=== PATIENT | female | born 1945 | race Caucasian/White ===

== ENCOUNTER 2024-04-07 10:44 | Emergency (ER) | payer OTHER ==
--- NOTE | 2024-04-07 12:01 | RAD REPORT ---
EXAMINATION: CT HEAD WITHOUT CONTRAST CT CERVICAL SPINE WITHOUT CONTRAST CLINICAL INDICATION: Head and neck injury status post fall. Head and neck pain TECHNIQUE: Axial CT images from the skull base to the vertex without intravenous contrast. Axial CT i mages through the cervical spine were obtained without intravenous contrast. Sagittal and coronal reformatted images were created from the data set. Coronal and sagittal reformatted images were creat ed from the data set. One or more of the following dose reduction techniques were used: Automated exposure control, adjustment of the mA and/or kV according to patient size, and/or iterative reconstr uction. Unless otherwise specified, incidental findings do not require dedicated imaging follow-up. [id number]. Comparison: 2012 FINDINGS: Intracranial bleed not noted. Ventricles are normal in caliber. Moderate low-density areas periventricular, deep and subcortical white matter probably ischemic river es secondary to small vessel disease. No extra-axial fluid collection. No fluid within the sinuses/mastoids No fracture or dislocation is seen involving the cervical spine. Spondylosis cervical spine. Mild to moderate central spinal stenosis distal cervical spine. Posterior elements IMPRESSION: No acute intracranial abnormality noted A cervical fracture is not seen. 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 This could be benign or a blastic metastasis.. Nonemergent bone scan carolyn mmended for further evaluation
--- NOTE | 2024-04-07 12:08 | ER ---
Nurse's Notes [facility] Name: Tiara Cheatham Age: 79 yrs Sex: Female : 1945 Arrival Date: 04/07/2024 Time: 10:44 Bed 7 Private MD: Diagnosis: Unspecified injury of head, initial encounter Presentation: 04/07 10:47 Chief complaint: EMS states: patient complains of hip pain, fell 1 months ago x 2 ko1 times, was having headaches, went to pcp who recommended neurology consult, no n/v, no loc. Coronavirus screen: At this time, the client does not indicate any symptoms associated with coronavirus-19. Ebola Screen: No symptoms or risks identified at this time. Initial Sepsis Screen: Does the patient meet any 2 criteria? No. Patient's initial sepsis screen is negative. Does the patient have a suspected source of infection? No. Patient's initial sepsis screen is negative. Risk Assessment: Do you want to hurt yourself or someone else? Patient reports no desire to harm self or others. Onset of symptoms is unknown. 10:47 Method Of Arrival: EMS: [facility] ko1 10:47 Acuity: TROY 3 ko1 Triage Assessment: 10:47 General: Appears in no apparent distress. Behavior is calm, cooperative, appropriate ko1 for age. Pain: Complains of pain in headache. Historical: - Allergies: 12:00 PENICILLINS; ko1 - Home Meds: 12:00 Unable to obtain [Active]; ko1 - PMHx: 12:00 Hypothyroidism; ko1 - PSHx: 12:00 Total abdominal hysterectomy; ko1 - Immunization history:: Adult Immunizations unknown. - Infectious Disease History:: Denies. - Social history:: Smoking status: Patient reports the use of cigarette tobacco products, smokes two packs cigarettes per day. Screenin:00 [facility] ED Fall Risk Assessment (Adult) History of falling in the last 3 months, ko1 including since admission Yes- fall prone (multiple falls) (3 pts) Confusion or Disorientation No (0 pts) Intoxicated or Sedated No (0 pts) Impaired Gait No (0 pts) Mobility Assist Device Used No (0 pt) Altered Elimination No (0 pt) Score/Fall Risk Level 0 - 2 = Low Risk Oriented to surroundings, Maintained a safe environment, Educated pt \T\ family on fall prevention, incl call for assistance when getting out of bed, Assessed \T\ reinforced patient's understanding of fall precautions, Provided non-skid footwear, Hourly rounding (assess needs \T\ fall precautionary measures) done. Abuse screen: Denies threats or abuse. Denies injuries from another. Nutritional screening: No deficits noted. Tuberculosis screening: No symptoms or risk factors identified. Assessment: 11:59 General: Appears in no apparent distress. Behavior is calm, cooperative, appropriate ko1 for age. Neuro: No deficits noted. Cardiovascular: No deficits noted. Respiratory: No deficits noted. GI: No deficits noted. : No deficits noted. EENT: No deficits noted. Derm: No deficits noted. Musculoskeletal: No deficits noted. Vital Signs: 10:47 BP 152 / 82; Pulse 71; Resp 16; Temp 98; Pulse Ox 95% ; ko1 11:00 BP 139 / 72; Pulse 66; Resp 16; Pulse Ox 97% on R/A; ko1 ED Course: 10:45 Patient arrived in ED. ko1 10:46 Ivory Yoon, DAREN is Primary Nurse. ko1 10:47 Arm band placed on right wrist. Patient placed in an exam room, on a stretcher, on ko1 oxygen, on library monitor, on pulse oximetry, Patient notified of wait time. 10:48 Abbie Clifton FNP-C is PHCP. kb 10:48 Jon Clements MD is Attending Physician. kb 10:49 Triage completed. ko1 11:21 CT Head C Spine In Process Unspecified. EDMS 12:00 Patient has correct armband on for positive identification. Allergy band placed. Fall ko1 risk band placed. Placed in gown. Bed in low position. Call light in reach. Side rails up X2. Provided Education on: tests. Pulse ox on. NIBP on. Door closed. Noise minimized. Lights dimmed. Warm blanket given. Pillow given. 12:00 No provider procedures requiring assistance completed. ko1 12:06 Patient did not have IV access during this emergency room visit. ko1 Administered Medications: No medications were administered Medication: 12:00 VIS not applicable for this client. ko1 Outcome: 12:07 Discharge ordered by . kb 12:16 Discharged to home ambulatory, with family, ko1 12:16 Condition: stable 12:16 Discharge instructions given to patient, Instructed on discharge instructions, follow up and referral plans. Demonstrated understanding of instructions, follow-up care, 12:16 Patient left the ED. ko1 Signatures: Dispatcher [employer] Abbie Duval, STEPHY-C LUMPIA WRAPPER MAKER-Ivory Young, RN RN ko1
--- NOTE | 2024-04-07 12:08 | EDPHYS ---
Physician Documentation [facility] Name: Tiara Cheatham Age: 79 yrs Sex: Female : 1945 Arrival Date: 04/07/2024 Time: 10:44 Bed 7 Private MD: ED Physician Jon Clements HPI: 04/07 11:11 This 79 yrs old Female presents to ER via EMS with complaints of Fall Injury. kb 11:11 Pt is a 79 year old female who presents for headache that started after a fall 3-4 kb weeks ago. States she fell, hit the left side of her head and then hit the right side when she tried to get up. States the headache has been constant and she decided to come get it checked out today because it has been causing her to feel panicky. . Historical: - Allergies: 12:00 PENICILLINS; ko1 - Home Meds: 12:00 Unable to obtain [Active]; ko1 - PMHx: 12:00 Hypothyroidism; ko1 - PSHx: 12:00 Total abdominal hysterectomy; ko1 - Immunization history:: Adult Immunizations unknown. - Infectious Disease History:: Denies. - Social history:: Smoking status: Patient reports the use of cigarette tobacco products, smokes two packs cigarettes per day. ROS: 11:11 Constitutional: As per HPI kb Exam: 11:11 Constitutional: This is a well developed, well nourished patient who is awake, alert, kb and in no acute distress. Head/Face: Normocephalic, atraumatic. ENT: Moist Mucous membranes Neck: Trachea midline and no cervical lymphadenopathy. Supple, full range of motion without nuchal rigidity, or vertebral point tenderness. No Meningismus. Cardiovascular: Regular rate Respiratory: Respirations even and unlabored. No increased work of breathing. Talking in full sentences Abdomen/GI: Soft, non-tender. No distention Skin: Warm, dry with normal turgor. Normal color. MS/ Extremity: Pulses equal, no cyanosis. Neurovascular intact. Full, normal range of motion. Neuro: Awake and alert, GCS 15, oriented to person, place, time, and situation. Vital Signs: 10:47 BP 152 / 82; Pulse 71; Resp 16; Temp 98; Pulse Ox 95% ; ko1 11:00 BP 139 / 72; Pulse 66; Resp 16; Pulse Ox 97% on R/A; ko1 MDM: 10:48 Medical Screening Exam initiated kb 11:11 Data reviewed: vital signs, nurses notes. kb 12:06 Differential diagnosis: closed head injury, contusion, fracture. Counseling: I had a kb detailed discussion with the patient and/or guardian regarding the historical points, exam findings, and any diagnostic results supporting the discharge/admit diagnosis, radiology results, the need for outpatient follow up, a family practitioner, to return to the emergency department if symptoms worsen or persist or if there are any questions or concerns that arise at home. 12:07 ED course: Discussed CT findings with pt. Pt states she had a bone scan 2 months ago kb that was normal, but will take results to PCP . . 04/07 10:50 Order name: CT Head C Spine; Complete Time: 12:03 kb Administered Medications: No medications were administered Disposition: 13:28 Co-signature as Attending Physician, Jon Clements MD I reviewed the patient's care rt provided by the Advanced Practice Provider and agree with the diagnosis and treatment plan. Disposition Summary: 04/07/24 12:07 Discharge Ordered Notes: Location: Home kb Condition: Stable kb Diagnosis - Unspecified injury of head, initial encounter kb Followup: kb - With: Emergency Department - When: As needed - Reason: Worsening of condition Followup: kb - With: Private Physician - When: 2 - 3 days - Reason: Recheck today's complaints, Continuance of care, Re-evaluation by your physician Discharge Instructions: - Discharge Summary Sheet kb - Head Injury, Adult, [id number] kb Forms: - Medication Reconciliation Form kb - Antibiotic Education kb - Prescription Opioid Use kb - Patient Portal Instructions kb - Leadership Thank You Letter kb Signatures: Dispatcher [employer] Abbie Duval, STEPHY-Socrates KEYES-Ivory Young, RN RN ko1 Jon Clements MD MD rt
[2024-04-07 12:29] VITALS: TEMP 98
[2024-04-07 12:31] VITALS: BP 139/72; O2SAT 97
== END 2024-04-07 12:16 | disposition home or self-care (01) ==
LOC: ER 10:44
DX: S09.90XA Unspecified injury of head, initial encounter (principal); W18.30XA Fall on same level, unspecified, initial encounter; F17.210 Nicotine dependence, cigarettes, uncomplicated
CPT/HCPCS: 70450; 72125; 99284

== ENCOUNTER 2024-10-08 12:46 | Emergency (ER) | payer OTHER ==
--- OUTSIDE RECORDS SUMMARY | 2024-10-08 12:50 | XMS REPORT | Continuity of Care Document ---
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 Name Role Phone Abigail Cole Attending Clinician Unavailable Tim-Mbayo_A_AH Attending Clinician Unavailable Tim-Mbayo_A_AH Admitting Clinician Unavailable Payers Payer Name Policy Type Policy Number Effective Date Expirati on Date Source Cigna Preferred [facility] 111 [id number] [facility] (MEDICARE REPLACEMENT HMO) [id number] 2023 00:00:00 [facility] ([facility]ICARE REPLACEMENT/ADVAN TAGE - HMO) [id number] 2019 00:00:00 Problems Condition Name Condition Details Condition Category Status Onset Date Resolution Date Last Treatment Date Treating Clinician Comments Source [id number] Chronic pain syndrome Problem [facility] [id number] Dysarthria Problem Commo n [facility] Hyperlipid aemia Hyperlipem ia Problem [facility] [id number] Insomnia, unspecifie d type Problem [facility] Chronic back pain Chronic back pain Problem [facility] Postsurgic al menopause Postsurgic al menopause Problem [facility] [id number] Vitamin D deficiency Problem [facility] [id number] Skin lesions Problem [facility] 10991428 Muscle cramps Problem [facility] [id number] Memory loss Problem [facility] 62586043 Muscle weakness Problem [facility] Peripheral neuropathy Peripheral neuropathy Problem [facility] 28582928 Hyperglyce jair Problem [facility] 03220544 Restless leg syndrome Problem [facility] 428149751 Routine eye exam Problem [facility] 51518295 Cataract of both eyes, unspecifie d cataract type Problem [facility] [id number] Frequent headaches Problem [facility] 69630196 Constipati on, unspecifie d constipati on type Problem [facility] 59329957 Neck pain Problem Commo n [facility] [id number] Pain in thoracic spine Problem [facility] 40982624 Other chronic pain Problem [facility] 01453448 Smoking greater than 40 pack years Problem [facility] Osteoarthr itis Osteoarthr itis Problem [facility] Tobacco user Smokes less than 1 pack a day with greater than 40 pack year history Problem [facility] Mixed anxiety and depressive disorder Depression with anxiety Problem [facility] Fibromyalg ia Fibromyalg ia Problem [facility] 66988184 Hyperchole sterolemia Problem [facility] 59648884 Migraine without status migrainosu s, not intractabl e, unspecifie d migraine type Problem [facility] 595628798 History of hyperglyce jair Problem [facility] 88401084 Lack of appetite Problem [facility] 13391963 Tremor Problem [facility] Allergies, Adverse Reactions, Alerts Allergy Name Allergy Type Status Severity Reaction(s) Onset Date Inactive Date Treating Clinician Comments Source Penicill in Penicill in Active Unknown [facility] Social History Social Habit Start Date Stop Date Quantity Comments Source History of Tobacco Use Current Smoker [facility] Sex Assigned At [facility] Smoking Status Start Date Stop Date Source Current Smoker 2024-07-19 00:00:00 [facility] Never Smoker [facility] Medications Ordered Medication Name Filled Medication Name Start Date Stop Date Current Medication? Ordering Clinician Indication Dosage Frequency Signature (SIG) Comments Components Source Mirtazapine 45 MG Mirtazapine 45 MG 2023-05 00:00: 00 No 1{table t_at_be dtime} QD Mirtazapin e 45 MG Gabapentin 600 MG Gabapentin 600 MG No 2{table ts} TID Gabapentin 600 MG Atorvastati n Calcium 20 MG Atorvastati n Calcium 20 MG No Atorvastat in Calcium 20 MG Citalopram Hydrobromid e 40 MG Citalopram Hydrobromid e 40 MG No 1{table t} QD Citalopram Hydrobromi de 40 MG rOPINIRole HCl 2 MG rOPINIRole HCl 2 MG No 1{table t} TID rOPINIRole HCl 2 MG Immunizations Ordered Immunization Name Filled Immunization Name Date Status Comments Source Pf[employer] COVID-19 Vaccine, Bivalent [employer] COVID-19 Vaccine, Bivalent Unknown Completed [facility] FLUZONE HIGH DOSE OVER 65 FLUZONE HIGH DOSE OVER 65 Unknown Completed [facility] [employer] COVID-19 Vaccine, Bivalent [employer] COVID-19 Vaccine, Bivalent Unknown Completed [facility] FLUZONE HIGH DOSE OVER 65 FLUZONE HIGH DOSE OVER 65 Unknown Completed [facility] [employer] COVID-19 Vaccine, Bivalent [employer] COVID-19 Vaccine, Bivalent Unknown Completed [facility] FLUZONE HIGH DOSE OVER 65 FLUZONE HIGH DOSE OVER 65 Unknown Completed [facility] [employer] COVID-19 Vaccine, Bivalent [employer] COVID-19 Vaccine, Bivalent Unknown Completed [facility] FLUZONE HIGH DOSE OVER 65 FLUZONE HIGH DOSE OVER 65 Unknown Completed [facility] [employer] COVID-19 Vaccine, Bivalent [employer] COVID-19 Vaccine, Bivalent Unknown Completed [facility] FLUZONE HIGH DOSE OVER 65 FLUZONE HIGH DOSE OVER 65 Unknown Completed [facility] [employer] COVID-19 Vaccine, Bivalent [employer] COVID-19 Vaccine, Bivalent Unknown Completed [facility] FLUZONE HIGH DOSE OVER 65 FLUZONE HIGH DOSE OVER 65 Unknown Completed [facility] [employer] COVID-19 Vaccine, Bivalent [employer] COVID-19 Vaccine, Bivalent Unknown Completed [facility] FLUZONE HIGH DOSE OVER 65 FLUZONE HIGH DOSE OVER 65 Unknown Completed [facility] [employer] COVID-19 Vaccine, Bivalent [employer] COVID-19 Vaccine, Bivalent Unknown Completed [facility] FLUZONE HIGH DOSE OVER 65 FLUZONE HIGH DOSE OVER 65 Unknown Completed [facility] [employer] COVID-19 Vaccine, Bivalent [employer] COVID-19 Vaccine, Bivalent Unknown Completed [facility] FLUZONE HIGH DOSE OVER 65 FLUZONE HIGH DOSE OVER 65 Unknown Completed [facility] [employer] COVID-19 Vaccine, Bivalent [employer] COVID-19 Vaccine, Bivalent Unknown Completed [facility] FLUZONE HIGH DOSE OVER 65 FLUZONE HIGH DOSE OVER 65 Unknown Completed [facility] [employer] COVID-19 Vaccine, Bivalent [employer] COVID-19 Vaccine, Bivalent Unknown Completed [facility] FLUZONE HIGH DOSE OVER 65 FLUZONE HIGH DOSE OVER 65 Unknown Completed [facility] [employer] COVID-19 Vaccine, Bivalent [employer] COVID-19 Vaccine, Bivalent Unknown Completed [facility] FLUZONE HIGH DOSE OVER 65 FLUZONE HIGH DOSE OVER 65 Unknown Completed [facility] [employer] COVID-19 Vaccine, Bivalent [employer] COVID-19 Vaccine, Bivalent Unknown Completed [facility] FLUZONE HIGH DOSE OVER 65 FLUZONE HIGH DOSE OVER 65 Unknown Completed [facility] [employer] COVID-19 Vaccine, Bivalent [employer] COVID-19 Vaccine, Bivalent Unknown Completed [facility] FLUZONE HIGH DOSE OVER 65 FLUZONE HIGH DOSE OVER 65 Unknown Completed [facility] [employer] COVID-19 Vaccine, Bivalent [employer] COVID-19 Vaccine, Bivalent Unknown Completed [facility] FLUZONE HIGH DOSE OVER 65 FLUZONE HIGH DOSE OVER 65 Unknown Completed [facility] Vital Signs Vital Name Observation Time Observation Value Comments S micaela height 2024-07-20 12:00:00 62 [facility]00 97 [lb_av] [facility] bmi 2024-07-20 12:00:00 17.74 kg/m2 Comm on [facility] height 2024-07-20 12:00:00 62 [in_i] Commo n [facility] weight 2024-07-20 12:00:00 97 [lb_av] [facility] bmi 2024-07-20 12:00:00 17.74 kg/m2 Comm on [facility] height 2024-05-14 14:40:00 62 [in_i] [facility] weight 2024-05-14 14:40:00 97.0 [lb_av] Com [facility] temperature 2024-05-14 14:40:00 97.3 [degF] Com [facility] bmi 2024-05-14 14:40:00 17.74 kg/m2 Comm on [facility] oximetry 2024-05-14 14:40:00 95 % [facility] respiratory rate 2024-05-14 14:40:00 16 /min [facility] blood pressure systolic 2024-05-14 14:40:00 120 mm[Hg] Common [facility] blood pressure diastolic 2024-05-14 14:40:00 58 mm[Hg] Common [facility] height 2024-04-04 08:40:00 62 [in_i] Commo n [facility] weight 2024-04-04 08:40:00 96 [lb_av] Commo n [facility] temperature 2024-04-04 08:40:00 96.7 [degF] Com mon [facility] bmi 2024-04-04 08:40:00 17.56 kg/m2 Comm on [facility] oximetry 2024-04-04 08:40:00 96 % Commo [facility] respiratory rate 2024-04-04 08:40:00 16 /min [facility] blood pressure systolic 2024-04-04 08:40:00 122 mm[Hg] [facility] blood pressure diastolic 2024-04-04 08:40:00 82 mm[Hg] [facility] height 2024-02-28 15:20:00 62 [in_i] Commo n [facility] weight 2024-02-28 15:20:00 96 [lb_av] Commo n [facility] bmi 2024-02-28 15:20:00 17.56 kg/m2 Comm on [facility] height 2023-10-13 11:00:00 62 [in_i] Commo n [facility] weight 2023-10-13 11:00:00 101 [lb_av] Comm on [facility] bmi 2023-10-13 11:00:00 18.47 kg/m2 Comm on [facility] height 2023-10-03 15:00:00 62 [in_i] Commo n [facility] weight 2023-10-03 15:00:00 101.4 [lb_av] Co mmon [facility] temperature 2023-10-03 15:00:00 97.4 [degF] Com mon [facility] bmi 2023-10-03 15:00:00 18.54 kg/m2 Comm on [facility] oximetry 2023-10-03 15:00:00 97 % Commo n [facility] respiratory rate 2023-10-03 15:00:00 16 /min Common [facility] blood pressure systolic 2023-10-03 15:00:00 124 mm[Hg] Common [facility] blood pressure diastolic 2023-10-03 15:00:00 68 mm[Hg[facility] height 2023-10-03 15:00:00 62 [in_i] Commo n [facility] weight 2023-10-03 15:00:00 101.4 [lb_av] Co mmon [facility] temperature 2023-10-03 15:00:00 97.4 [degF] Com mon [facility] bmi 2023-10-03 15:00:00 18.54 kg/m2 Comm on [facility] oximetry 2023-10-03 15:00:00 97 % Commo n [facility] respiratory rate 2023-10-03 15:00:00 16 /min [facility] blood pressure systolic 2023-10-03 15:00:00 124 mm[Hg] [facility] blood pressure diastolic 2023-10-03 15:00:00 68 mm[Hg] [facility] height 2023-08-30 07:50:00 62 [in_i] Commo n [facility] weight 2023-08-30 07:50:00 110 [lb_av] Comm on [facility] bmi 2023-08-30 07:50:00 20.12 kg/m2 Comm on [facility] height 2023-06-23 11:20:00 62 [in_i] Commo n [facility] weight 2023-06-23 11:20:00 105 [lb_av] Comm on [facility] temperature 2023-06-23 11:20:00 97.2 [degF] Com mon [facility] bmi 2023-06-23 11:20:00 19.2 kg/m2 Commo n [facility] oximetry 2023-06-23 11:20:00 95 % Commo n [facility] respiratory rate 2023-06-23 11:20:00 16 /min Common [facility] blood pressure systolic 2023-06-23 11:20:00 126 mm[Hg] Common [facility] blood pressure diastolic 2023-06-23 11:20:00 62 mm[Hg] [facility] height 2023-03-11 09:00:00 62 [in_i] Commo n [facility] weight 2023-03-11 09:00:00 104 [lb_av] Comm on [facility] bmi 2023-03-11 09:00:00 19.02 kg/m2 Comm on [facility] height 2022-10-01 14:40:00 62 [in_i] Commo n [facility] weight 2022-10-01 14:40:00 102.6 [lb_av] Co mmon [facility] temperature 2022-10-01 14:40:00 99.2 [degF] Com mon [facility] bmi 2022-10-01 14:40:00 18.76 kg/m2 Comm on [facility] oximetry 2022-10-01 14:40:00 95 % Commo n [facility] respiratory rate 2022-10-01 14:40:00 16 /min Common [facility] blood pressure systolic 2022-10-01 14:40:00 105 mm[Hg] Common [facility] blood pressure diastolic 2022-10-01 14:40:00 64 mm[Hg] [facility] height 2022-10-01 14:40:00 62 [in_i] Commo n [facility] weight 2022-10-01 14:40:00 102.6 [lb_av] Co mmon [facility] temperature 2022-10-01 14:40:00 99.2 [degF] Com mon [facility] bmi 2022-10-01 14:40:00 18.76 kg/m2 Comm on [facility] oximetry 2022-10-01 14:40:00 95 % Commo n [facility] respiratory rate 2022-10-01 14:40:00 16 /min [facility] blood pressure systolic 2022-10-01 14:40:00 105 mm[Hg] [facility] blood pressure diastolic 2022-10-01 14:40:00 64 mm[Hg] [facility] Encounters Start Date/Time End Date/Time Encounter Type Admission Type Attending [facility] Care Facility Care Department Encounter ID Source 2024-06-08 15:41:00 Outpatient ColeAbigail ellis STLMLC STLC [id number] [facility] 2024-05-10 15:47:00 Outpatient ColeAbigail ellis STLMLC STLMLC [id number] [facility] 2024-05-03 10:52:00 Outpatient ColeAbigail ellis STLMLC STLMLC [id number] [facility] 2024-02-28 08:45:00 Outpatient ColeAbigail ellis STLMLC STLMLC [id number] [facility] 2024-02-21 10:57:00 Outpatient ColeAbigail ellis STLMLC STLMLC [id number] [facility] 2024-01-03 08:36:01 Outpatient ColeAbigail ellis STLMLC STLMLC [id number] [facility] 2023-10-03 13:03:00 Outpatient Cole, Abigail STLMLC STLMLC [id number] [facility] 2023-09-29 08:11:00 Outpatient Cole, Abigail STLMLC STLMLC [id number] [facility] 2023-08-29 13:44:01 Outpatient Cole, Abigail STLMLC STLMLC [id number] [facility] 2023-08-04 10:34:00 Outpatient Cole, Abigail STLMLC STLMLC [id number] [facility] 2023-06-27 10:16:00 Outpatient Cole, Abigail STLMLC STLMLC [id number] [facility] 2023-06-21 08:16:00 Outpatient Cole, Abigail STLMLC STLMLC [id number] [facility] 2023-06-14 15:11:00 Outpatient Cole, Abigail STLMLC STLMLC [id number] [facility] 2023-03-10 14:02:00 Outpatient Cole, Abigail STLMLC STLMLC [id number] [facility] 2022-10-01 14:29:00 Outpatient Cole, Abigail STLMLC STLMLC [id number] [facility] 2024-07-25 00:00:00 2024-07-25 00:00:00 (TEL) STLMLC STLMLC [id number] [facility] 2024-07-20 00:00:00 2024-07-20 00:00:00 SUB ANNUAL [facility] VIS[facility] STLMLC STLMLC [id number] [facility] 2024-07-20 00:00:00 2024-07-20 00:00:00 OFFICE VISIT ESTAB PT LEVEL 4 STLMLC STLC [id number] [facility] 2024-06-08 00:00:00 2024-06-08 00:00:00 (TEL) STLMLC STLMLC [id number] [facility] 2024-05-14 00:00:00 2024-05-14 00:00:00 OFFICE VISIT ESTAB PT LEVEL 4 STLMLC STLMLC [id number] [facility] 2024-04-08 00:00:00 2024-04-08 00:00:00 (WEB) STLMLC STLMLC [id number] [facility] 2024-04-04 00:00:00 2024-04-04 00:00:00 (TEL) STLMLC STLMLC [id number] [facility] 2024-04-04 00:00:00 2024-04-04 00:00:00 OFFICE VISIT ESTAB PT LEVEL 4 STLMLC STLMLC [id number] [facility] 2024-04-04 00:00:00 2024-04-04 00:00:00 (TEL) STLMLC STLMLC [id number] [facility] 2024-02-28 00:00:00 2024-02-28 00:00:00 OFFICE VISIT ESTAB PT LEVEL 4 STLMLC STLMLC [id number] [facility] 2024-02-21 00:00:00 2024-02-21 00:00:00 (TEL) STLMLC STLMLC [id number] [facility] 2023-12-21 00:00:00 2023-12-21 00:00:00 (TEL) STLMLC STLMLC [id number] [facility] 2023-11-09 00:00:00 2023-11-09 00:00:00 (TEL) STLMLC STLMLC [id number] [facility] 2023-10-28 00:00:00 2023-10-28 00:00:00 OFFICE VISIT ESTAB PT LEVEL 3 STLMLC STLMLC [id number] [facility] 2023-10-13 00:00:00 2023-10-13 00:00:00 OFFICE VISIT ESTAB PT LEVEL 3 STLMLC STLMLC [id number] [facility] 2023-10-12 00:00:00 2023-10-12 00:00:00 (TEL) STLMLC STLMLC [id number] [facility] 2023-10-03 00:00:00 2023-10-03 00:00:00 SUB ANNUAL [facility] VISIT STLMLC STLMLC [id number] [facility] 2023-10-03 00:00:00 2023-10-03 00:00:00 OFFICE VISIT ESTAB PT LEVEL 4 STLMLC STLMLC [id number] [facility] 2023-08-30 00:00:00 2023-08-30 00:00:00 OFFICE VISIT ESTAB PT LEVEL 4 STLMLC STLMLC [id number] [facility] 2023-06-24 00:00:00 2023-06-24 00:00:00 (TEL) STLMLC STLMLC [id number] [facility] 2023-06-23 00:00:00 2023-06-23 00:00:00 OFFICE VISIT ESTAB PT LEVEL 4 STLMLC STLMLC [id number] [facility] 2023-06-14 00:00:00 2023-06-14 00:00:00 (TEL) STLMLC STLMLC [id number] [facility] 2023-04-13 00:00:00 2023-04-13 00:00:00 Outpatient DMG DMG [id number] [facility] 2023-03-11 00:00:00 2023-03-11 00:00:00 OFFICE VISIT ESTAB PT LEVEL 3 STLMLC STLMLC [id number] [facility] 2023-03-10 00:00:00 2023-03-10 00:00:00 (TEL) STLMLC STLMLC [id number] [facility] 2023-02-13 00:00:00 2023-02-13 00:00:00 (WEB) STLMLC STLMLC [id number] [facility] 2022-12-31 00:00:00 2022-12-31 00:00:00 (TEL) STLMLC STLMLC [id number] [facility] 2022-10-01 00:00:00 2022-10-01 00:00:00 OFFICE VISIT ESTAB PT LEVEL 4 STLMLC STLMLC [id number] [facility] 2022-10-01 00:00:00 2022-10-01 00:00:00 SUB [facility] [id number] 2022-09-08 15:00:00 2022-09-08 15:00:00 Outpatient MHIE MHIE [id number] Ricky Gandhi 2022-03-10 15:45:00 2022-03-10 15:45:00 Outpatient MHIE MHIE [id number] Ricky Gandhi 2022-01-26 13:45:00 2022-01-26 13:45:00 Outpatient MHIE MHIE [id number] Ricky Gandhi 2021-06-11 11:15:00 2021-06-11 11:15:00 Outpatient MHIE MHIE [id number] Ricky Gandhi 2021-06-11 11:15:00 2021-06-11 11:15:00 Outpatient MHIE MHIE [id number] Ricky lucas [place] 2021-04-08 10:00:00 2021-04-08 10:00:00 Outpatient MHIE MHIE [id number] Ricky Gandhi 2020-12-12 10:15:00 2020-12-12 10:15:00 Outpatient MHIE MHIE [id number] Ricky lucas [place] 2020-08-12 15:00:00 2020-08-12 15:00:00 Outpatient MHIE MHIE [id number] Ricky lucas [place] 2020-04-15 09:15:00 2020-04-15 09:15:00 Outpatient MHIE MHIE [id number] Josefinairene lucas [place] 2019-09-20 13:00:00 2019-09-20 13:00:00 Outpatient MHIE MHIE [id number] Ricky lucas [place] 2019-08-10 11:15:00 2019-08-10 11:15:00 Outpatient MHIE MHIE [id number] Ricky lucas [place] 2019-07-18 07:14:00 2019-07-18 07:14:00 Outpatient Tim-Mbayo _A_AH VFP VFP [id number] [facility] 2019-07-18 07:14:00 2019-07-18 07:14:00 Outpatient Tim-Mbayo _A_AH VFP VFP [id number] [facility] 2019-07-18 07:14:00 2019-07-18 07:14:00 Outpatient Tim-Mbayo _A_AH VFP VFP [id number] [facility] 2019-07-18 07:14:00 2019-07-18 07:14:00 Outpatient Tim-Mbayo _A_AH VFP VFP [id number] [facility] 2019-06-21 11:15:00 2019-06-21 11:15:00 Outpatient MHIE MHIE [id number] Ricky lucas [place] 2019-02-22 11:45:00 2019-02-22 11:45:00 Outpatient MHIE MHIE [id number] Ricky shayy Gandhi 2018-09-19 10:15:00 2018-09-19 10:15:00 Outpatient MHIE MHIE [id number] Josefinairene shayy Gandhi 2018-05-16 10:00:00 2018-05-16 10:00:00 Outpatient MHIE MHIE [id number] Josefinairene shayy Gandhi 2018-01-17 10:15:00 2018-01-17 10:15:00 Outpatient MHIE MHIE [id number] Josefinairene shayy Gandhi 2017-10-25 09:00:00 2017-10-25 09:00:00 Outpatient MHIE MHIE [id number] Josefinairene shayy Gandhi 2017-07-26 09:15:00 2017-07-26 09:15:00 Outpatient MHIE MHIE [id number] Ricky Gandhi Results Test Description Test Time Test Comments Results Result Co mments Source COMPREHENSIVE METABOLIC PANEL(CMP)2023-06-15 00:00:00* Test Item Value Reference Range Interpretation Comme nts ALBUMIN (test code = 1751-7) 4.5 g/dL See_Comment N [Automated messa ge] The system which generated this result transmitted reference range: 3.6-5.1 g/dL. The reference range was not used to interpret this result as normal/abnormal. ALBUMIN/GLOBULIN RATIO (test code = 1759-0) 2.1 (calc) See_Comment N [Automated messa ge] The system which generated this result transmitted reference range: 1.0-2.5 (calc). The reference range was not used to interpret this result as normal/abnormal. ALKALINE PHOSPHATASE (test code = 6768-6) 55 U/L See_Comment N [Automated message] The system which generated this result transmitted reference range: 37-153 U/L. The reference range was not used to interpret this result as normal/abnormal. ALT (test code = 1742-6) 9 U/L See_Comment N [Automated messa ge] The system which generated this result transmitted reference range: 6-29 U/L. The reference range was not used to interpret this result as normal/abnormal. AST (test code = 1920-8) 12 U/L See_Comment N [Automated messa ge] The system which generated this result transmitted reference range: 10-35 U/L. The reference range was not used to interpret this result as normal/abnormal. BILIRUBIN, TOTAL (test code = 1975-2) 0.5 mg/dL See_Comment N [Automated message] The system which generated this result transmitted reference range: 0.2-1.2 mg/dL. The reference range was not used to interpret this result as normal/abnormal. BUN/CREATININE RATIO (test code = 3097-3) SEE NOTE: (calc) See_Comment [Automated message] The system which generated this result transmitted reference range: 6-22 (calc). The reference range was not used to interpret this result as normal/abnormal. CALCIUM (test code = 45533-6) 9.2 mg/dL See_Comment N [Automated messa ge] The system which generated this result transmitted reference range: 8.6-10.4 mg/dL. The reference range was not used to interpret this result as normal/abnormal. CARBON DIOXIDE (test code = 8-9) 28 mmol/L See_Comment N [Automated messa ge] The system which generated this result transmitted reference range: 20-32 mmol/L. The reference range was not used to interpret this result as normal/abnormal. CHLORIDE (test code = 5-0) 105 mmol/L See_Comment N [Automated messa ge] The system which generated this result transmitted reference range: 98-110 mmol/L. The reference range was not used to interpret this result as normal/abnormal. CREATININE (test code = 2160-0) 0.72 mg/dL See_Comment N [Automated messa ge] The system which generated this result transmitted reference range: 0.60-1.00 mg/dL. The reference range was not used to interpret this result as normal/abnormal. GLOBULIN (test code = 40201-4) 2.1 g/dL (calc) See_Comment N [Automated message] The system which generated this result transmitted reference range: 1.9-3.7 g/dL (calc). The reference range was not used to interpret this result as normal/abnormal. GLUCOSE (test code = 2345-7) 90 mg/dL See_Comment N [Automated messa ge] The system which generated this result transmitted reference range: 65-99 mg/dL. The reference range was not used to interpret this result as normal/abnormal. POTASSIUM (test code = 2823-3) 4.4 mmol/L See_Comment N [Automated messa ge] The system which generated this result transmitted reference range: 3.5-5.3 mmol/L. The reference range was not used to interpret this result as normal/abnormal. PROTEIN, TOTAL (test code = 2885-2) 6.6 g/dL See_Comment N [Automated messa ge] The system which generated this result transmitted reference range: 6.1-8.1 g/dL. The reference range was not used to interpret this result as normal/abnormal. SODIUM (test code = 2951-2) 140 mmol/L See_Comment N [Automated messa ge] The system which generated this result transmitted reference range: 135-146 mmol/L. The reference range was not used to interpret this result as normal/abnormal. UREA NITROGEN (BUN) (test code = 3094-0) 8 mg/dL See_Comment N [Automated message] The system which generated this result transmitted reference range: 7-25 mg/dL. The reference range was not used to interpret this result as normal/abnormal. CBC W/AUTO [id number] 00:00:00* Test Item Value Reference Range Interpretation Comme nts NUCLEATED RBCS (test code = 36184-5) 0.0 /100 WBC'S See_Comment [Automated messa ge] The system which generated this result transmitted reference range: 0.0 /100 WBC'S. The reference range was not used to interpret this result as normal/abnormal. ABSOLUTE EOSINOPHILS (test code = 49802-6) 0.05 K/UL See_Comment [Automated messa ge] The system which generated this result transmitted reference range: 0.00-0.50 K/UL. The reference range was not used to interpret this result as normal/abnormal. ABSOLUTE LYMPHOCYTES (test code = 24316-6) 2.01 K/UL See_Comment [Automated messa ge] The system which generated this result transmitted reference range: 1.00-4.00 K/UL. The reference range was not used to interpret this result as normal/abnormal. ABSOLUTE MONOCYTES (test code = 38409-0) 0.57 K/UL See_Comment [Automated messa ge] The system which generated this result transmitted reference range: 0.20-1.00 K/UL. The reference range was not used to interpret this result as normal/abnormal. ABSOLUTE NEUTROPHILS (test code = 50893-3) 3.47 K/UL See_Comment [Automated messa ge] The system which generated this result transmitted reference range: 1.50-7.50 K/UL. The reference range was not used to interpret this result as normal/abnormal. BASOPHILS (test code = 94800-1) 1.0 % EOSINOPHILS (test code = 36383-2) 0.8 % HEMATOCRIT (test code = 74189-7) 44.5 % See_Comment [Automated messa ge] The system which generated this result transmitted reference range: 34.0-45.0 %. The reference range was not used to interpret this result as normal/abnormal. HEMOGLOBIN (test code = 718-7) 15.6 G/DL See_Comment H [Automated messa ge] The system which generated this result transmitted reference range: 11.5-15.5 G/DL. The reference range was not used to interpret this result as normal/abnormal. LYMPHOCYTES (test code = 07065-6) 32.6 % MCH (test code = 21157-7) 34.1 PG See_Comment H [Automated messa ge] The system which generated this result transmitted reference range: 25.0-33.0 PG. The reference range was not used to interpret this result as normal/abnormal. MCHC (test code = 12063-3) 35.1 G/DL See_Comment [Automated messa ge] The system which generated this result transmitted reference range: 31.0-36.0 G/DL. The reference range was not used to interpret this result as normal/abnormal. MCV (test code = 85949-8) 97.2 fL See_Comment [Automated messa ge] The system which generated this result transmitted reference range: 80.0-99.0 fL. The reference range was not used to interpret this result as normal/abnormal. MONOCYTES (test code = 06473-3) 9.2 % NEUTROPHILS (test code = 36087-6) 56.2 % PLATELET COUNT (test code = 91696-7) 132 K/UL See_Comment [Automated messa ge] The system which generated this result transmitted reference range: 130-400 K/UL. The reference range was not used to interpret this result as normal/abnormal. RBC (test code = 47841-2) 4.58 M/UL See_Comment [Automated messa ge] The system which generated this result transmitted reference range: 3.80-5.40 M/UL. The reference range was not used to interpret this result as normal/abnormal. RDW (test code = 62647-6) 12.4 % See_Comment [Automated messa ge] The system which generated this result transmitted reference range: 11.5-15.0 %. The reference range was not used to interpret this result as normal/abnormal. WBC (test code = 58136-9) 6.2 K/UL See_Comment [Automated messa ge] The system which generated this result transmitted reference range: 3.5-11.0 K/UL. The reference range was not used to interpret this result as normal/abnormal. Chest Pa And Lat (2 Views)Chest Pa And Lat (2 Views)DEXA, BONE DENSITY AXIAL SKELEDEXA, BONE DENSITY AXIAL SKELE
[2024-10-08 13:11] LABS: Absolute Basophils 0.1 K/uL (0-0.5); Absolute Eosinophils 0.1 K/uL (0-0.5); Absolute Lymphocytes (CBC) 2.4 K/uL (0.7-4.9); Absolute Monocytes 0.6 K/uL (0.1-1.3); Absolute Neutrophil 5.7 K/uL (1.8-8.0); Basophils % 1.1 % (0-1.3); Eosinophils % 0.8 % (0-4.4); Hematocrit 23.9 % (36.0-45.0); Hemoglobin 8.6 g/dL (12.0-15.0); Lymphocytes % 27.2 % (15.3-44.8); MCH 36.2 pg (27.0-35.0); MCV 100.7 fL (80-100); Monocytes % 6.9 % (3.3-12.3); Platelets 155 thou/uL (152-406); RBC Red Blood Cell Count 2.37 M/uL (3.86-4.86); Red Cell Distribution Width 13.4 % (12.1-15.2)
--- NOTE | 2024-10-08 13:28 | RAD REPORT ---
Procedure: Chest Single View HISTORY: Shortness of breath COMPARISON: 2023 FINDINGS: The lungs appear clear of acute infiltrate. Lungs are hyperaerated. No significant pleural effusion noted. The heart is normal size. IMPRESSION: No acute abnormality is displayed.
[2024-10-08 13:34] LABS: ALT/SGPT 15 U/L (13-56); Albumin 3.1 g/dL (3.4-5.0); Albumin/Globulin Ratio 1.1 (1.1-1.8); Alkaline Phosphatase 49 U/L (45-117); Anion Gap 7.1 mEq/L (5.0-15.0); BUN Blood Urea Nitrogen 20 mg/dL (7-18); Bicarbonate 27 mEq/L (21-32); Bilirubin Total 0.2 mg/dL (0.2-1.0); Globulin 2.7 g/dL (2.3-3.5); Glomerular Filtration Rate 90 ml/min (=/>90); Glucose Level 102 mg/dL (74-106); Magnesium 1.9 mg/dL (1.6-2.4); NT PRO-BNP 67 pg/mL (<450); Potassium 4.1 mEq/L (3.5-5.1); Protein, Total 5.8 g/dL (6.4-8.2); Sodium Level 140 mEq/L (136-145)
[2024-10-08 13:40] LABS: AST/SGOT < 10 U/L (15-37); Bilirubin Direct < 0.2 mg/dL (0-0.2); Troponin High Sensitivity < 3.0 pg/mL (<58.9)
--- NOTE | 2024-10-08 13:42 | RAD REPORT ---
EXAM: CT brain without contrast HISTORY: Tremor COMPARISON: 2023 TECHNIQUE: Multiple contiguous axial images were obtained and a CT of the brain without contrast.. Sagittal and coronal reconstruction performed. Automated exposure control, adjustment of the mA and/or kV according to patient size, and/or iterative reconstruction. Unless otherwise specified, incidental f indings do not require dedicated imaging follow-up FINDINGS: An intracranial bleed is not seen Ventricles are normal caliber No extra-axial fluid collection noted Mild to moderate low-density paraventricular, deep and subcortical white matter probably ischemic kiley nges secondary to small vessel disease. No fluid within the visualized sinuses or mastoids noted. IMPRESSION: No acute intracranial abnormality noted. If the patient continues to have symptoms to suggest an acute intracranial abnormality then MRI of th e brain would be recommended.
[2024-10-08 14:18] LABS: Protime INR 0.96
[2024-10-08] MEDS ORDERED: CYANOCOBALAMIN 1000MCG/ML INJ IM ONE (14:19)
[2024-10-08 14:32] LABS: Specific Gravity 1.021 (1.005-1.030); Sqamous Epithelial <5 /HPF (None Seen); Urine Bacteria None Seen /HPF (<20); Urine Bilirubin NEGATIVE (Negative); Urine Blood Negative (Negative); Urine Clarity Clear (Clear); Urine Color Light-Yellow (Yellow); Urine Culture Reflex Order NOT NEEDED; Urine Glucose NEGATIVE (Negative); Urine Ketones NEGATIVE (Negative); Urine Microscopic Reflex YN ORDER UMIC; Urine Nitrite NEGATIVE (Negative); Urine Protein NEGATIVE (Negative); Urine RBC <5 /HPF (None Seen); Urine Urobilinogen Normal (Normal); Urine WBC <5 /HPF (<5); Urine pH 5.5 (5.0-7.0)
--- NOTE | 2024-10-08 15:12 | ER ---
Nurse's Notes [facility] Name: Tiara Cheatham Age: 79 yrs Sex: Female : 1945 Arrival Date: 10/08/2024 Time: 12:46 Bed 26 Private MD: Diagnosis: Generalized weakness, macrocytic anemia Presentation: 10/08 12:48 Chief complaint: Patient states: generalized weakness, dizziness, nausea, SOB, tremors aa5 that began 2 months ago but symptoms got worse this morning. 12:48 Coronavirus screen: shortness of breath. Ebola Screen: Patient denies travel to an aa5 Ebola-affected area in the 21 days before illness onset. Initial Sepsis Screen: Does the patient meet any 2 criteria? No. Patient's initial sepsis screen is negative. Does the patient have a suspected source of infection? No. Patient's initial sepsis screen is negative. Risk Assessment: Do you want to hurt yourself or someone else? Patient reports no desire to harm self or others. Onset of symptoms was 2024. 12:48 Acuity: TROY 3 aa5 12:48 Method Of Arrival: EMS: [facility] aa5 Historical: - Allergies: 12:48 PENICILLINS; aa5 - Home Meds: 13:04 gabapentin 600 mg oral tablet 4 times a day [Active]; citalopram 40 mg tablet daily aa5 [Active]; ropinirole 2 mg oral tablet [Active]; mirtazapine 45 mg Oral tablet daily [Active]; - PMHx: 12:48 neuropathy (Unknown); RLS (Unknown); aa5 - PSHx: 12:48 Total abdominal hysterectomy; aa5 - Immunization history:: Adult Immunizations unknown. - Infectious Disease History:: Denies. - Social history:: Smoking status: Patient reports the use of cigarette tobacco products. Screenin:50 [facility] ED Fall Risk Assessment (Adult) History of falling in the last 3 months, aa5 including since admission No falls in past 3 months (0 pts) Confusion or Disorientation No (0 pts) Intoxicated or Sedated No (0 pts) Impaired Gait No (0 pts) Mobility Assist Device Used No (0 pt) Altered Elimination No (0 pt) Score/Fall Risk Level 0 - 2 = Low Risk Oriented to surroundings, Maintained a safe environment, Educated pt \T\ family on fall prevention, incl call for assistance when getting out of bed, Assessed \T\ reinforced patient's understanding of fall precautions. Abuse screen: Denies threats or abuse. Nutritional screening: No deficits noted. Tuberculosis screening: No symptoms or risk factors identified. Assessment: 12:48 General: Appears comfortable, Behavior is calm, cooperative. Pain: Denies pain. Neuro: aa5 Level of Consciousness is awake, alert, obeys commands, Oriented to person, place, time, situation. Cardiovascular: Heart tones S1 S2 present Rhythm is regular. Respiratory: Airway is patent Respiratory effort is even, unlabored, Respiratory pattern is regular, symmetrical. GI: No signs and/or symptoms were reported involving the gastrointestinal system. : No signs and/or symptoms were reported regarding the genitourinary system. EENT: No signs and/or symptoms were reported regarding the EENT system. Derm: Skin is pink, warm \T\ dry. Musculoskeletal: Range of motion: intact in all extremities. 14:28 Reassessment: Patient is alert, oriented x 3, equal unlabored respirations, skin aa5 warm/dry/pink. Pt moved to Room 26, pt's care will be continued by another nurse. . Vital Signs: 12:48 BP 110 / 60; Pulse 89; Resp 16 S; Temp 98.6(O); Pulse Ox 100% on R/A; Weight 47.63 kg aa5 (M); Height 5 ft. 1 in. (R); 15:17 BP 111 / 57; Pulse 72; Resp 16; Pulse Ox 98% on R/A; dd2 12:48 Body Mass Index 19.84 (47.63 kg, 154.94 cm) aa5 ED Course: 12:48 Patient arrived in ED. aa5 12:48 Sole Melvin, RN is Primary Nurse. aa5 12:48 Arm band placed on Patient placed in an exam room, on a stretcher. aa5 12:48 Patient has correct armband on for positive identification. Bed in low position. Call aa5 light in reach. Side rails up X2. Client placed on continuous cardiac and pulse oximetry monitoring. NIBP monitoring applied. senior hr business partner on. Pulse ox on. NIBP on. 12:50 Lea Fitzgerald MD is Attending Physician. sp3 13:02 Inserted saline lock: 20 gauge in right antecubital area, using aseptic technique. nh2 Blood collected. Flushed with 10 mL NS. 13:04 Triage completed. aa5 13:13 XRAY Chest (1 view) In Process Unspecified. EDMS 13:17 Basic Metabolic Panel Sent. nh2 13:17 LFT's Sent. nh2 13:17 Magnesium Sent. nh2 13:17 NT PRO-BNP Sent. nh2 13:17 PT-INR Sent. nh2 13:17 Troponin HS Sent. nh2 13:21 CT Head Brain wo Cont In Process Unspecified. EDMS 14:29 No provider procedures requiring assistance completed. aa5 15:42 Provided Education on: D/C INSTRUCTIONS, MEDICATIONS. dd2 15:42 IV discontinued, intact, bleeding controlled, No redness/swelling at site. Pressure dd2 dressing applied. Administered Medications: 14:35 Drug: Cyanocobalamin IM 1000 mcg IM once Route: IM; Site: right deltoid; dd2 14:50 Follow up: Response: No adverse reaction dd2 Medication: 14:28 VIS not applicable for this client. aa5 Outcome: 15:12 Discharge ordered by MD. bell 15:42 Discharged to home via wheelchair, with family, dd2 15:42 Condition: stable 15:42 Discharge instructions given to patient, Instructed on discharge instructions, follow up and referral plans. Demonstrated understanding of instructions, follow-up care, 15:43 Patient left the ED. dd2 Signatures: Dispatcher [employer] Sole Yousif, RN RN aa5 Lea Fitzgerald MD MD sp3 ANN WALKER RN RN dd2 Markus Saavedra Jr [facility] Corrections: (The following items were deleted from the chart) 13:02 12:48 PMHx: Hypothyroidism; aa5 aa5
--- NOTE | 2024-10-08 15:12 | EDPHYS ---
Physician Documentation [facility] Name: Tiara Cheatham Age: 79 yrs Sex: Female : 1945 Arrival Date: 10/08/2024 Time: 12:46 Bed 26 Private MD: ED Physician Lea Fitzgerald HPI: 10/08 13:14 This 79 yrs old Female presents to ER via EMS with complaints of General Weakness. sp3 13:14 79-year-old female with history of RLS, unknown type neuropathy, now presents to the ED sp3 for 2-month history of vague symptoms including generalized weakness, anxiety, shortness of breath, tremor which comes and goes. She sees her primary care doctor regularly and was waiting till her October appointment to tell her all of this. However today she states that the tremor and shortness of breath got worse and so she decided to come to the ED. Her symptoms are mainly resolved currently. She denies any ongoing or prior headache, neck pain, chest pain, abdominal pain, vomiting, diarrhea, rash, syncope, known sick contacts, travel history, or any other signs or symptoms on ROS at this time.. Historical: - Allergies: 12:48 PENICILLINS; aa5 - Home Meds: 13:04 gabapentin 600 mg oral tablet 4 times a day [Active]; citalopram 40 mg tablet daily aa5 [Active]; ropinirole 2 mg oral tablet [Active]; mirtazapine 45 mg Oral tablet daily [Active]; - PMHx: 12:48 neuropathy (Unknown); RLS (Unknown); aa5 - PSHx: 12:48 Total abdominal hysterectomy; aa5 - Immunization history:: Adult Immunizations unknown. - Infectious Disease History:: Denies. - Social history:: Smoking status: Patient reports the use of cigarette tobacco products. ROS: 13:21 Constitutional: Negative for fever, chills, and weight loss, Eyes: Negative for injury, sp3 pain, redness, and discharge, ENT: Negative for injury, pain, and discharge, Neck: Negative for injury, pain, and swelling, Cardiovascular: Negative for chest pain, palpitations, and edema, Abdomen/GI: Negative for abdominal pain, nausea, vomiting, diarrhea, and constipation, Back: Negative for injury and pain, MS/Extremity: Negative for injury and deformity, Skin: Negative for injury, rash, and discoloration, Psych: Negative for depression, anxiety, suicide ideation, homicidal ideation, and hallucinations, Allergy/Immunology: Negative for hives, rash, and allergies, Endocrine: Negative for neck swelling, polydipsia, polyuria, polyphagia, and marked weight changes, Hematologic/Lymphatic: Negative for swollen nodes, abnormal bleeding, and unusual bruising, 13:21 All other systems are negative, Exam: 13:23 Constitutional: This is a well developed, well nourished patient who is awake, alert, sp3 and in no acute distress. Head/Face: Normocephalic, atraumatic. Eyes: Pupils equal round and reactive to light, extra-ocular motions intact. Lids and lashes normal. Conjunctiva and sclera are non-icteric and not injected. Cornea within normal limits. Periorbital areas with no swelling, redness, or edema. ENT: Nares patent. No nasal discharge, no septal abnormalities noted. External auditory canals are clear. Oropharynx with no redness, swelling, or masses, exudates, or evidence of obstruction, uvula midline. Mucous membranes moist. Neck: Trachea midline, no thyromegaly or masses palpated, and no cervical lymphadenopathy. Supple, full range of motion without nuchal rigidity, or vertebral point tenderness. No Meningismus. Chest/axilla: Normal chest wall appearance and motion. Nontender with no deformity. No lesions are appreciated. Cardiovascular: Regular rate and rhythm with a normal S1 and S2. No gallops, murmurs, or rubs. Normal PMI, no JVD. No pulse deficits. Respiratory: Lungs have equal breath sounds bilaterally, clear to auscultation and percussion. No rales, rhonchi or wheezes noted. No increased work of breathing, no retractions or nasal flaring. Abdomen/GI: Soft, non-tender, with normal bowel sounds. No distension or tympany. No guarding or rebound. No evidence of tenderness throughout. Back: No spinal tenderness. No costovertebral tenderness. Full range of motion. Skin: Warm, dry with normal turgor. Normal color with no rashes, no lesions, and no evidence of cellulitis. MS/ Extremity: Pulses equal, no cyanosis. Neurovascular intact. Full, normal range of motion. Neuro: Awake and alert, GCS 15, oriented to person, place, time, and situation. Cranial nerves II-XII grossly intact. Motor strength 5/5 in all extremities. Sensory grossly intact. Cerebellar exam normal. Normal gait. Psych: Awake, alert, with orientation to person, place and time. Behavior, mood, and affect are within normal limits. 13:23 Neuro: No tremor present currently., 15:10 ECG was reviewed by the Attending Physician. EKG demonstrates normal sinus rhythm at 75 sp3 bpm with a first-degree AV block with OK interval 210, otherwise normal intervals, normal axis, normal QRS and nonspecific ST/T changes without evidence of acute ischemia. Vital Signs: 12:48 BP 110 / 60; Pulse 89; Resp 16 S; Temp 98.6(O); Pulse Ox 100% on R/A; Weight 47.63 kg aa5 (M); Height 5 ft. 1 in. (R); 15:17 BP 111 / 57; Pulse 72; Resp 16; Pulse Ox 98% on R/A; dd2 12:48 Body Mass Index 19.84 (47.63 kg, 154.94 cm) aa5 MDM: 12:51 Medical Screening Exam initiated sp3 13:23 Data reviewed: vital signs, nurses notes, lab test result(s), EKG, radiologic studies. sp3 ED course: 79-year-old female with vague symptoms as outlined above. Differential diagnosis includes viral illness, electrolyte abnormality, ACS, other intracranial pathology, new onset tremor, upper respiratory infection, among others. Given degree of symptoms, differential is quite wide. However clinically patient is not in any distress, has normal vital signs and is resting comfortably. Clinically I am not highly suspicious of sepsis, shock or any other critical illness. Workup will be broad and include EKG, chest x-ray, CT scan of the head, general labs including troponin, UA and if full workup negative, we will safely discharge patient home to PCP follow-up.. 15:11 ED course: Full workup negative. Patient's hemoglobin at 8.2 and MCV at 100. Will treat sp3 with B12 and have patient follow-up with PCP. No other intervention indicated in the ED.. 10/08 12:59 Order name: Basic Metabolic Panel; Complete Time: 13:44 sp3 10/08 12:59 Order name: CBC with Diff; Complete Time: 13:44 sp3 10/08 12:59 Order name: LFT's; Complete Time: 13:44 sp3 10/08 12:59 Order name: Magnesium; Complete Time: 13:44 sp3 10/08 12:59 Order name: NT PRO-BNP; Complete Time: 13:44 sp3 10/08 12:59 Order name: PT-INR; Complete Time: 14:23 sp3 10/08 12:59 Order name: Troponin HS; Complete Time: 13:44 sp3 10/08 12:59 Order name: UA Rfx Yosi Cult if indicated; Complete Time: 14:36 sp3 10/08 12:59 Order name: XRAY Chest (1 view); Complete Time: 13:44 sp3 10/08 12:59 Order name: CT Head Brain wo Cont; Complete Time: 13:44 sp3 10/08 12:59 Order name: Cardiac monitoring; Complete Time: 12:59 sp3 10/08 12:59 Order name: EKG - Nurse/Tech; Complete Time: 13:17 sp3 10/08 12:59 Order name: IV Saline Lock; Complete Time: 13:02 sp3 10/08 12:59 Order name: Labs collected and sent; Complete Time: 13:17 sp3 10/08 12:59 Order name: O2 Per Protocol; Complete Time: 12:59 sp3 10/08 12:59 Order name: O2 Sat Monitoring; Complete Time: 12:59 sp3 Administered Medications: 14:35 Drug: Cyanocobalamin IM 1000 mcg IM once Route: IM; Site: right deltoid; dd2 14:50 Follow up: Response: No adverse reaction dd2 Disposition Summary: 10/08/24 15:12 Discharge Ordered Notes: Location: Home sp3 Condition: Stable sp3 Diagnosis - Generalized weakness, macrocytic anemia sp3 Followup: sp3 - With: Private Physician - When: Upon discharge from the Emergency Department - Reason: Continuance of care Discharge Instructions: - Discharge Summary Sheet sp3 - Pernicious Anemia sp3 Forms: - Medication Reconciliation Form sp3 - Antibiotic Education sp3 - Prescription Opioid Use sp3 - Patient Portal Instructions sp3 - Leadership Thank You Letter sp3 Signatures: Dispatcher [employer] Sole Yousif RN RN aa5 Lea Fitzgerald MD MD sp3 ANN WALKER RN RN dd2 Corrections: (The following items were deleted from the chart) 13:00 13:00 BASIC METABOLIC PANEL+C.LAB.BRZ ordered. EDMS EDMS 13: 13:00 CBC+H.LAB.BRZ ordered. EDMS EDMS 13: 13:00 HEPATIC FUNCTION+C.LAB.BRZ ordered. EDMS EDMS : 13:00 MAGNESIUM+C.LAB.BRZ ordered. EDMS EDMS : 13:00 PROBNP+C.LAB.BRZ ordered. EDMS EDMS : 13:00 PROTIME (+INR)+COAG.LAB.BRZ ordered. EDMS EDMS :00 13:00 Troponin High Sensitivity+C.LAB.BRZ ordered. EDMS EDMS :00 13:00 UA Rfx Yosi Cult if indicated+U.LAB.BRZ ordered. EDMS EDMS : 13:00 Chest Single View+RAD.RAD.BRZ ordered. EDMS EDMS :00 13:00 Head Brain Wo Cont+CT.RAD.BRZ ordered. EDMS EDMS 13:02 12:48 PMHx: Hypothyroidism; aa5 aa5
[2024-10-08 15:52] VITALS: TEMP 98.6
[2024-10-08 15:57] VITALS: BP 111/57; O2SAT 98
--- NOTE | 2024-10-10 12:25 | EKG ---
Test Date: 2024-10-08 Test Time: 13:27:24 Branch Services Manager: BUD MEASUREMENT RESULTS: Intervals: Rate: 75 DC: 210 QRSD: 72 QT: 388 QTc: 433 [place]: P: 87 DC: 210 QRS: 57 T: 100 INTERPRETIVE STATEMENTS: Sinus rhythm with 1st degree AV block Nonspecific T wave abnormality Abnormal ECG Compared to ECG 07/21/2012 17:02:31 T-wave abnormality now present Atrial premature complex(es) no longer present Myocardial infarct finding no longer present Electronically Signed On 10-10-24 12:22:04 CDT by Cheng Brewster
== END 2024-10-08 15:43 | disposition home or self-care (01) ==
LOC: ER 12:46
DX: D53.9 Nutritional anemia, unspecified (principal); Z72.0 Tobacco use
CPT/HCPCS: 93005; 85025; 81001; 80048; 36415; 83735; 85610; 80076; 84484; 83880; 70450; 71045; 96372; 99285; J3420

== ENCOUNTER 2024-10-12 08:51 | Emergency (ER) | payer OTHER ==
--- OUTSIDE RECORDS SUMMARY | 2024-10-12 08:56 | XMS REPORT | Continuity of Care Document ---
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 [employer] Name Role Phone Abigail Cole Attending Clinician Unavailable Tim-Mbayo_A_AH Attending Clinician Unavailable Tim-Mbayo_A_AH Admitting Clinician Unavailable Payers Payer Name Policy Type Policy Number Effective Date Expirati on Date Source Cigna Preferred [facility] HMO 111 [id number] [facility] (MEDICARE REPLACEMENT HMO) [id number] 2023 00:00:00 [facility] (MEDICARE REPLACEMENT/ADVAN TAGE - HMO) [id number] 2019 00:00:00 Problems Condition Name Condition Details Condition Category Status Onset Date Resolution Date Last Treatment Date Treating Clinician Comments Source [id number] Chronic pain syndrome Problem [facility] [id number] Dysarthria Problem Commo n [facility] Hyperlipid aemia Hyperlipem ia Problem [facility] [id number] Insomnia, unspecifie d type Problem [facility] Chronic back pain Chronic back pain Problem [facility] Postsurgic al menopause Postsurgic al menopause Problem [facility] [id number] Vitamin D deficiency Problem [facility] [id number] Skin lesions Problem [facility] 11267377 Muscle cramps Problem [facility] [id number] Memory loss Problem [facility] 75394965 Muscle weakness Problem [facility] Peripheral neuropathy Peripheral neuropathy Problem [facility] [id number] Hyperglyce jari Problem [facility] [id number] Restless leg syndrome Problem [facility] [id number] Routine eye exam Problem [facility] 77888504 Cataract of both eyes, unspecifie d cataract type Problem [facility] [id number] Frequent headaches Problem [facility] 99528397 Constipati on, unspecifie d constipati on type Problem [facility] 70401624 Neck pain Problem Commo n [facility] [id number] Pain in thoracic spine Problem [facility] 99213759 Other chronic pain Problem [facility] 27378321 Smoking greater than 40 pack years Problem [facility] Osteoarthr itis Osteoarthr itis Problem [facility] Tobacco user Smokes less than 1 pack a day with greater than 40 pack year history Problem [facility] Mixed anxiety and depressive disorder Depression with anxiety Problem [facility] Fibromyalg ia Fibromyalg ia Problem [facility] [id number] Hyperchole sterolemia Problem [facility] 78705081 Migraine without status migrainosu s, not intractabl e, unspecifie d migraine type Problem [facility] 398773851 History of hyperglyce jair Problem [facility] 42690943 Lack of appetite Problem [facility] 03083261 Tremor Problem [facility] Allergies, Adverse Reactions, Alerts Allergy Name Allergy Type Status Severity Reaction(s) Onset Date Inactive Date Treating Clinician Comments Source Penicill in Penicill in Active Unknown [facility] Social History Social Habit Start Date Stop Date Quantity Comments Source History of Tobacco Use Current Smoker [facility] Sex Assigned At [facility] Smoking Status Start Date Stop Date Source Current Smoker 2024-10-09 00:00:00 [facility] Never Smoker [facility] Medications Ordered Medication Name Filled Medication [...] 1{table t} TID rOPINIRole HCl 2 MG Albuterol Sulfate HFA 108 (90 Base) MCG/ACT Albuterol Sulfate HFA 108 (90 Base) MCG/ACT No 1{puff_ as_need ed} 6xD Albuterol Sulfate HFA 108 (90 Base) MCG/ACT Immunizations Ordered Immunization Name Filled Immunization Name Date Status Comments Source Pfizer BioNT[employer] COVID-19 Vaccine, Bivalent Pfizer [employer] COVID-19 Vaccine, Bivalent Unknown Completed [facility] FLUZONE HIGH DOSE OVER 65 FLUZONE HIGH DOSE OVER 65 Unknown Completed [facility] Pfizer [employer] COVID-19 Vaccine, Bivalent Pfizer [employer] COVID-19 Vaccine, Bivalent Unknown Completed [facility] FLUZONE HIGH DOSE OVER 65 FLUZONE HIGH DOSE OVER 65 Unknown Completed [facility] Pfizer [employer] COVID-19 Vaccine, Bivalent Pf[employer] COVID-19 Vaccine, Bivalent Unknown Completed [facility] FLUZONE HIGH DOSE OVER 65 FLUZONE HIGH DOSE OVER 65 Unknown Completed [facility] Pfizer [employer] COVID-19 Vaccine, Bivalent Pf[employer] COVID-19 Vaccine, Bivalent Unknown Completed [facility] FLUZONE HIGH DOSE OVER 65 FLUZONE HIGH DOSE OVER 65 Unknown Completed [facility] Pfizer [employer] COVID-19 Vaccine, Bivalent Pf[employer] COVID-19 Vaccine, Bivalent Unknown Completed [facility] FLUZONE HIGH DOSE OVER 65 FLUZONE HIGH DOSE OVER 65 Unknown Completed [facility] Pf[employer] COVID-19 Vaccine, Bivalent Pf[employer] COVID-19 Vaccine, Bivalent Unknown Completed [facility] FLUZONE HIGH DOSE OVER 65 FLUZONE HIGH DOSE OVER 65 Unknown Completed [facility] Pf[employer] COVID-19 Vaccine, Bivalent Pf[employer] COVID-19 Vaccine, Bivalent Unknown Completed [facility] FLUZONE HIGH DOSE OVER 65 FLUZONE HIGH DOSE OVER 65 Unknown Completed [facility] Pf[employer] COVID-19 Vaccine, Bivalent Pf[employer] COVID-19 Vaccine, Bivalent Unknown Completed [facility] FLUZONE HIGH DOSE OVER 65 FLUZONE HIGH DOSE OVER 65 Unknown Completed [facility] Pf[employer] COVID-19 Vaccine, Bivalent Pf[employer] COVID-19 Vaccine, Bivalent Unknown Completed [facility] FLUZONE HIGH DOSE OVER 65 FLUZONE HIGH DOSE OVER 65 Unknown Completed [facility] Pf[employer] COVID-19 Vaccine, Bivalent Pf[employer] COVID-19 Vaccine, Bivalent Unknown Completed [facility] FLUZONE HIGH DOSE OVER 65 FLUZONE HIGH DOSE OVER 65 Unknown Completed [facility] Pf[employer] COVID-19 Vaccine, Bivalent Pf[employer] COVID-19 Vaccine, Bivalent Unknown Completed [facility] FLUZONE HIGH DOSE OVER 65 FLUZONE HIGH DOSE OVER 65 Unknown Completed [facility] Pf[employer] COVID-19 Vaccine, Bivalent Pf[employer] COVID-19 Vaccine, Bivalent Unknown Completed [facility] FLUZONE HIGH DOSE OVER 65 FLUZONE HIGH DOSE OVER 65 Unknown Completed [facility] Pf[employer] COVID-19 Vaccine, Bivalent Pf[employer] COVID-19 Vaccine, Bivalent Unknown Completed [facility] FLUZONE HIGH DOSE OVER 65 FLUZONE HIGH DOSE OVER 65 Unknown Completed [facility] Pf[employer] COVID-19 Vaccine, Bivalent Pf[employer] COVID-19 Vaccine, Bivalent Unknown Completed [facility] FLUZONE HIGH DOSE OVER 65 FLUZONE HIGH DOSE OVER 65 Unknown Completed [facility] Pf[employer] COVID-19 Vaccine, Bivalent Pf[employer] COVID-19 Vaccine, Bivalent Unknown Completed [facility] FLUZONE HIGH DOSE OVER 65 FLUZONE HIGH DOSE OVER 65 Unknown Completed [facility] Vital Signs Vital Name Observation Time Observation Value Comments S micaela height 2024-07-20 12:00:00 62 [in_i] [facility] weight 2024-07-20 12:00:00 97 [lb_av] [facility] bmi 2024-07-20 12:00:00 17.74 kg/m2 Comm on [facility] height 2024-07-20 12:00:00 62 [in_i] [facility] 2024-[facility] 12:00:00 97 [lb_av] [facility] bmi 2024-07-20 12:00:00 17.74 kg/m2 Comm on [facility] height 2024-05-14 14:40:00 62 [in_i] [facility] weight 2024-05-14 14:40:00 97.0 [lb_av] Com [facility] temperature 2024-05-14 14:40:00 97.3 [degF] Com [facility] bmi 2024-05-14 14:40:00 17.74 kg/m2 Comm on [facility] oximetry 2024-05-14 14:40:00 95 % [facility] respiratory rate 2024-05-14 14:40:00 16 /min [facility] blood pressure systolic 2024-05-14 14:40:00 120 mm[Hg] [facility] blood pressure diastolic 2024-05-14 14:40:00 58 mm[Hg] [facility] height 2024-04-04 08:40:00 62 [in_i] Commo n [facility] weight 2024-04-04 08:40:00 96 [lb_av] Commo n [facility] temperature 2024-04-04 08:40:00 96.7 [degF] Com mon [facility] bmi 2024-04-04 08:40:00 17.56 kg/m2 Comm on [facility] oximetry 2024-04-04 08:40:00 96 % [facility] respiratory rate 2024-04-04 08:40:00 16 /min [facility] blood pressure systolic 2024-04-04 08:40:00 122 mm[Hg] [facility] blood pressure diastolic 2024-04-04 08:40:00 82 mm[Hg] [facility] height 2024-02-28 15:20:00 62 [in_i] Commo n [facility] weight 2024-02-28 15:20:00 96 [lb_av] Commo n [facility] bmi 2024-02-28 15:20:00 17.56 kg/m2 Comm on [facility] height 2023-10-13 11:00:00 62 [in_i] Commo n [facility] weight 2023-10-13 11:00:00 101 [lb_av] Comm on [facility] bmi 2023-10-13 11:00:00 18.47 kg/m2 Comm on [facility] height 2023-10-03 15:00:00 62 [in_i] Commo n [facility] weight 2023-10-03 15:00:00 101.4 [lb_av] Co mmon [facility] temperature 2023-10-03 15:00:00 97.4 [degF] Com mon [facility] bmi 2023-10-03 15:00:00 18.54 kg/m2 Comm on [facility] oximetry 2023-10-03 15:00:00 97 % Commo n [facility] respiratory rate 2023-10-03 15:00:00 16 /min Common [facility] blood pressure systolic 2023-10-03 15:00:00 124 mm[Hg] [facility] blood pressure diastolic 2023-10-03 15:00:00 68 mm[Hg] Common [facility] height 2023-10-03 15:00:00 62 [in_i] Commo n [facility] weight 2023-10-03 15:00:00 101.4 [lb_av] Co on [facility] temperature 2023-10-03 15:00:00 97.4 [degF] Com mon [facility] bmi 2023-10-03 15:00:00 18.54 kg/m2 Comm on [facility] oximetry 2023-10-03 15:00:00 97 % Commo n [facility] respiratory rate 2023-10-03 15:00:00 16 /min Common [facility] blood pressure systolic 2023-10-03 15:00:00 124 mm[Hg] Common [facility] blood pressure diastolic 2023-10-03 15:00:00 68 mm[Hg] Common [facility] height 2023-08-30 07:50:00 62 [in_i] Commo n [facility] weight 2023-08-30 07:50:00 110 [lb_av] Comm on [facility] bmi 2023-08-30 07:50:00 20.12 kg/m2 Comm on [facility] height 2023-06-23 11:20:00 62 [in_i] Commo n [facility] weight 2023-06-23 11:20:00 105 [lb_av] Comm on [facility] temperature 2023-06-23 11:20:00 97.2 [degF] Com mon [facility] bmi 2023-06-23 11:20:00 19.2 kg/m2 Commo n [facility] oximetry 2023-06-23 11:20:00 95 % Commo n [facility] respiratory rate 2023-06-23 11:20:00 16 /min Common [facility] blood pressure systolic 2023-06-23 11:20:00 126 mm[Hg] [facility] blood pressure diastolic 2023-06-23 11:20:00 62 mm[Hg] Common [facility] height 2023-03-11 09:00:00 62 [in_i] Commo n [facility] weight 2023-03-11 09:00:00 104 [lb_av] Comm on [facility] 2023-03-11 09:00:00 19.02 kg/m2 Comm on [facility] height 2022-10-01 14:40:00 62 [in_i] Commo n [facility] weight 2022-10-01 14:40:00 102.6 [lb_av] Co mmon [facility] temperature 2022-10-01 14:40:00 99.2 [degF] Com mon [facility] bmi 2022-10-01 14:40:00 18.76 kg/m2 Comm on [facility] oximetry 2022-10-01 14:40:00 95 % Commo n [facility] respiratory rate 2022-10-01 14:40:00 16 /min Common [facility] blood pressure systolic 2022-10-01 14:40:00 105 mm[Hg] Common [facility] blood pressure diastolic 2022-10-01 14:40:00 64 mm[Hg] [facility] height 2022-10-01 14:40:00 62 [in_i] Commo n [facility] weight 2022-10-01 14:40:00 102.6 [lb_av] Co mmon [facility] temperature 2022-10-01 14:40:00 99.2 [degF] Com mon [facility] bmi 2022-10-01 14:40:00 18.76 kg/m2 Comm on [facility] oximetry 2022-10-01 14:40:00 95 % Commo n [facility] respiratory rate 2022-10-01 14:40:00 16 /min [facility] blood pressure systolic 2022-10-01 14:40:00 105 mm[Hg] [facility] blood pressure diastolic 2022-10-01 14:40:00 64 mm[Hg] [facility] Encounters Start Date/Time End Date/Time Encounter Type Admission Type Attending [facility] Facility Care Department Encounter ID Source 2024-06-08 15:41:00 Outpatient ColeAbigail ellis STLC STLC [id number] [facility] 2024-05-10 15:47:00 Outpatient ColeAbigail ellis STLC STLC [id number] [facility] 2024-05-03 10:52:00 Outpatient ColeAbigail ellis STLC STLC [id number] [facility] 2024-02-28 08:45:00 Outpatient ColeAbigail ellis STLC STLMLC [id number] [facility] 2024-02-21 10:57:00 Outpatient ColeAbigail ellis STLC STLMLC [id number] [facility] 2024-01-03 08:36:01 Outpatient ColeAbigail STLMLC STLMLC [id number] [facility] 2023-10-03 13:03:00 Outpatient ColeAbigail STLMLC STLMLC [id number] [facility] 2023-09-29 08:11:00 Outpatient Cole, Abigail STLMLC STLMLC [id number] [facility] 2023-08-29 13:44:01 Outpatient ColeHoracioi STLMLC STLMLC [id number] [facility] 2023-08-04 10:34:00 Outpatient ColeAbigail STLMLC STLMLC [id number] [facility] 2023-06-27 10:16:00 Outpatient Cole, Abigail STLMLC STLMLC [id number] [facility] 2023-06-21 08:16:00 Outpatient ColeHoracioi STLMLC STLMLC [id number] [facility] 2023-06-14 15:11:00 Outpatient ColeHoracioi STLMLC STLMLC [id number] [facility] 2023-03-10 14:02:00 Outpatient ColeHoracioi STLMLC STLMLC [id number] [facility] 2022-10-01 14:29:00 Outpatient ColeHoracioi STLMLC STLMLC [id number] [facility] 2024-10-09 00:00:00 2024-10-09 00:00:00 (TEL) STLMLC STLMLC [id number] [facility] 2024-10-08 00:00:00 2024-10-08 00:00:00 (TEL) STLMLC STLMLC [id number] [facility] 2024-07-25 00:00:00 2024-07-25 00:00:00 (TEL) STLMLC STLMLC [id number] [facility] 2024-07-20 00:00:00 2024-07-20 00:00:00 SUB ANNUAL [facility] WELLNESS VISIT STLMLC STLMLC [id number] [facility] 2024-07-20 00:00:00 2024-07-20 00:00:00 OFFICE VISIT ESTAB PT LEVEL 4 STLMLC STLMLC [id number] [facility] 2024-06-08 00:00:00 2024-06-08 00:00:00 (TEL) STLMLC STLMLC [id number] [facility] 2024-05-14 00:00:00 2024-05-14 00:00:00 OFFICE VISIT ESTAB PT LEVEL 4 STLMLC STLMLC [id number] [facility] 2024-04-08 00:00:00 2024-04-08 00:00:00 (WEB) STLMLC STLMLC [id number] [facility] 2024-04-04 00:00:00 2024-04-04 00:00:00 (TEL) STLMLC STLMLC [id number] [facility] 2024-04-04 00:00:00 2024-04-04 00:00:00 OFFICE VISIT ESTAB PT LEVEL 4 STLMLC STLMLC [id number] [facility] 2024-04-04 00:00:00 2024-04-04 00:00:00 (TEL) STLMLC STLMLC [id number] [facility] 2024-02-28 00:00:00 2024-02-28 00:00:00 OFFICE VISIT ESTAB PT LEVEL 4 STLMLC STLMLC [id number] [facility] 2024-02-21 00:00:00 2024-02-21 00:00:00 (TEL) STLMLC STLMLC [id number] [facility] 2023-12-21 00:00:00 2023-12-21 00:00:00 (TEL) STLMLC STLMLC [id number] [facility] 2023-11-09 00:00:00 2023-11-09 00:00:00 (TEL) STLMLC STLMLC [id number] [facility] 2023-10-28 00:00:00 2023-10-28 00:00:00 OFFICE VISIT ESTAB PT LEVEL 3 STLMLC STLMLC [id number] [facility] 2023-10-13 00:00:00 2023-10-13 00:00:00 OFFICE VISIT ESTAB PT LEVEL 3 STLMLC STLMLC [id number] [facility] 2023-10-12 00:00:00 2023-10-12 00:00:00 (TEL) STLMLC STLMLC [id number] [facility] 2023-10-03 00:00:00 2023-10-03 00:00:00 SUB ANNUAL [facility] WELLNESS VISIT STLMLC STLMLC [id number] [facility] 2023-10-03 00:00:00 2023-10-03 00:00:00 OFFICE VISIT ESTAB PT LEVEL 4 STLMLC STLMLC [id number] [facility] 2023-08-30 00:00:00 2023-08-30 00:00:00 OFFICE VISIT ESTAB PT LEVEL 4 STLMLC STLMLC [id number] [facility] 2023-06-24 00:00:00 2023-06-24 00:00:00 (TEL) STLMLC STLMLC [id number] [facility] 2023-06-23 00:00:00 2023-06-23 00:00:00 OFFICE VISIT ESTAB PT LEVEL 4 STLMLC STLMLC [id number] [facility] 2023-06-14 00:00:00 2023-06-14 00:00:00 (TEL) STLMLC STLMLC [id number] [facility] 2023-04-13 00:00:00 2023-04-13 00:00:00 Outpatient DMG DMG [id number] [facility] 2023-03-11 00:00:00 2023-03-11 00:00:00 OFFICE VISIT ESTAB PT LEVEL 3 STLMLC STLMLC [id number] [facility] 2023-03-10 00:00:00 2023-03-10 00:00:00 (TEL) STLMLC STLMLC [id number] [facility] 2023-02-13 00:00:00 2023-02-13 00:00:00 (WEB) STLMLC STLMLC [id number] [facility] 2022-12-31 00:00:00 2022-12-31 00:00:00 (TEL) STLMLC STLMLC [id number] [facility] 2022-10-01 00:00:00 2022-10-01 00:00:00 OFFICE VISIT ESTAB PT LEVEL 4 STLMLC STLMLC [id number] [facility] 2022-10-01 00:00:00 2022-10-01 00:00:00 SUB ANNUAL [facility] WELLNESS VISIT STLMLC STLMLC [id number] [facility] 2022-09-08 15:00:00 2022-09-08 15:00:00 Outpatient MHIE MHIE [id number] Ricky lucas [place] 2022-03-10 15:45:00 2022-03-10 15:45:00 Outpatient MHIE MHIE [id number] Josefinairene shayy [place] 2022-01-26 13:45:00 2022-01-26 13:45:00 Outpatient MHIE MHIE [id number] [place]rene shayy [place] 2021-06-11 11:15:00 2021-06-11 11:15:00 Outpatient MHIE MHIE [id number] Josefinairene shayy [place] 2021-06-11 11:15:00 2021-06-11 11:15:00 Outpatient MHIE MHIE [id number] Ricky Gandhi 2021-04-08 10:00:00 2021-04-08 10:00:00 Outpatient MHIE MHIE [id number] Ricky Gandhi 2020-12-12 10:15:00 2020-12-12 10:15:00 Outpatient MHIE MHIE [id number] Ricky Gandhi 2020-08-12 15:00:00 2020-08-12 15:00:00 Outpatient MHIE MHIE [id number] Ricky Gandhi 2020-04-15 09:15:00 2020-04-15 09:15:00 Outpatient MHIE MHIE [id number] Ricky Gandhi 2019-09-20 13:00:00 2019-09-20 13:00:00 Outpatient MHIE MHIE [id number] Ricky Gandhi 2019-08-10 11:15:00 2019-08-10 11:15:00 Outpatient MHIE MHIE [id number] Ricky Gandhi 2019-07-18 07:14:00 2019-07-18 07:14:00 Outpatient Tim-Mbayo _A_AH VFP VFP [id number] [facility] 2019-07-18 07:14:00 2019-07-18 07:14:00 Outpatient Tim-Mbayo _A_AH VFP VFP [id number] [facility] 2019-07-18 07:14:00 2019-07-18 07:14:00 Outpatient Tim-Mbayo _A_AH VFP VFP [id number] [facility] 2019-07-18 07:14:00 2019-07-18 07:14:00 Outpatient Tim-Mbayo _A_AH VFP VFP [id number] [facility] 2019-06-21 11:15:00 2019-06-21 11:15:00 Outpatient MHIE MHIE [id number] Ricky lucas [place] 2019-02-22 11:45:00 2019-02-22 11:45:00 Outpatient MHIE MHIE [id number] Ricky lucas [place] 2018-09-19 10:15:00 2018-09-19 10:15:00 Outpatient MHIE MHIE [id number] Ricky lucas [place] 2018-05-16 10:00:00 2018-05-16 10:00:00 Outpatient MHIE MHMAYA [id number] Ricky Gandhi 2018-01-17 10:15:00 2018-01-17 10:15:00 Outpatient THU ANDINO [id number] Ricky Gandhi 2017-10-25 09:00:00 2017-10-25 09:00:00 Outpatient THU ANDINO [id number] Ricky Gandhi 2017-07-26 09:15:00 2017-07-26 09:15:00 Outpatient THU ANDINO [id number] Ricky Gandhi Results Test Description Test Time [...] result as normal/abnormal. CALCIUM (test code = 53378-0) 9.2 mg/dL See_Comment N [Automated messa ge] The system which generated this result transmitted reference range: 8.6-10.4 mg/dL. The reference range was not used to interpret this result as normal/abnormal. CARBON DIOXIDE (test code = 2028-9) 28 mmol/L See_Comment N [Automated messa ge] The system which generated this result transmitted reference range: 20-32 mmol/L. The reference range was not used to interpret this result as normal/abnormal. CHLORIDE (test code = 2075-0) 105 mmol/L See_Comment N [Automated messa ge] [...] result as normal/abnormal. GLOBULIN (test code = 22891-0) 2.1 g/dL (calc) See_Comment N [Automated message] [...] interpret this result as normal/abnormal. CBC W/AUTO [id number] 00:00:00* Test Item Value Reference Range Interpretation Comme nts NUCLEATED RBCS (test code = 92348-9) 0.0 /100 WBC'S See_Comment [Automated [employer] ge] The system which generated this result transmitted reference range: 0.0 /100 WBC'S. The reference range was not used to interpret this result as normal/abnormal. ABSOLUTE EOSINOPHILS (test code = 09349-9) 0.05 K/UL See_Comment [Automated [employer] ge] The system which generated this result transmitted reference range: 0.00-0.50 K/UL. The reference range was not used to interpret this result as normal/abnormal. ABSOLUTE LYMPHOCYTES (test code = 79350-2) 2.01 K/UL See_Comment [Automated messa ge] The system which generated this result transmitted reference range: 1.00-4.00 K/UL. The reference range was not used to interpret this result as normal/abnormal. ABSOLUTE MONOCYTES (test code = 98890-2) 0.57 K/UL See_Comment [Automated messa ge] The system which generated this result transmitted reference range: 0.20-1.00 K/UL. The reference range was not used to interpret this result as normal/abnormal. ABSOLUTE NEUTROPHILS (test code = 92599-8) 3.47 K/UL See_Comment [Automated messa ge] The system which generated this result transmitted reference range: 1.50-7.50 K/UL. The reference range was not used to interpret this result as normal/abnormal. BASOPHILS (test code = 32081-2) 1.0 % EOSINOPHILS (test code = 18084-8) 0.8 % HEMATOCRIT (test code = 51302-5) 44.5 % See_Comment [Automated messa ge] The [...] result as normal/abnormal. LYMPHOCYTES (test code = 49937-5) 32.6 % MCH (test code = 96041-7) 34.1 PG See_Comment H [Automated messa ge] The system which generated this result transmitted reference range: 25.0-33.0 PG. The reference range was not used to interpret this result as normal/abnormal. MCHC (test code = 05805-5) 35.1 G/DL See_Comment [Automated messa ge] The system which generated this result transmitted reference range: 31.0-36.0 G/DL. The reference range was not used to interpret this result as normal/abnormal. MCV (test code = 82305-2) 97.2 fL See_Comment [Automated messa ge] The system which generated this result transmitted reference range: 80.0-99.0 fL. The reference range was not used to interpret this result as normal/abnormal. MONOCYTES (test code = 95466-7) 9.2 % NEUTROPHILS (test code = 32040-3) 56.2 % PLATELET COUNT (test code = 77348-4) 132 K/UL See_Comment [Automated messa ge] The system which generated this result transmitted reference range: 130-400 K/UL. The reference range was not used to interpret this result as normal/abnormal. RBC (test code = 48934-2) 4.58 M/UL See_Comment [Automated messa ge] The system which generated this result transmitted reference range: 3.80-5.40 M/UL. The reference range was not used to interpret this result as normal/abnormal. RDW (test code = 87623-8) 12.4 % See_Comment [Automated [employer]] The system which generated this result transmitted reference range: 11.5-15.0 %. The reference range was not used to interpret this result as normal/abnormal. WBC (test code = 99063-3) 6.2 K/UL See_Comment [Automated [employer]] The system which generated this result transmitted reference range: 3.5-11.0 K/UL. The reference range was not used to interpret this result as normal/abnormal. Chest Pa And Lat (2 Views)Chest Pa And Lat (2 Views)DEXA, BONE DENSITY AXIAL SKELEDEXA, BONE DENSITY AXIAL SKELE
[2024-10-12] MEDS ORDERED: PANTOPRAZOLE 40 MG INJ ONE ×2 (09:05→10:18)
[2024-10-12] MEDS ORDERED: NA CHLORIDE 0.9% 1,000 ML ONE (09:05)
[2024-10-12 09:37] LABS: Absolute Basophils 0.1 K/uL (0-0.5); Absolute Lymphocytes (CBC) 1.5 K/uL (0.7-4.9); Absolute Monocytes 0.5 K/uL (0.1-1.3); Absolute Neutrophil 3.5 K/uL (1.8-8.0); Basophils % 1.4 % (0-1.3); Eosinophils % 0.8 % (0-4.4); Hematocrit 21.2 % (36.0-45.0); Hemoglobin 7.4 g/dL (12.0-15.0); Lymphocytes % 26.7 % (15.3-44.8); MCH 36.2 pg (27.0-35.0); MCHC 35.1 g/dL (32.0-36.0); MCV 103.2 fL (80-100); MPV 8.5 fL (7.6-11.3); Monocytes % 9.6 % (3.3-12.3); Neutrophils % 61.5 % (41.7-73.7); Nucleated Red Blood Cells % 0.1 % (0-0); Platelets 225 thou/uL (152-406); RBC Red Blood Cell Count 2.05 M/uL (3.86-4.86); Red Cell Distribution Width 16.4 % (12.1-15.2)
[2024-10-12 09:56] LABS: ALT/SGPT 17 U/L (13-56); AST/SGOT 13 U/L (15-37); Albumin 2.9 g/dL (3.4-5.0); Albumin/Globulin Ratio 0.9 (1.1-1.8); Alkaline Phosphatase 57 U/L (45-117); Anion Gap 9.9 mEq/L (5.0-15.0); BUN Blood Urea Nitrogen 10 mg/dL (7-18); Bicarbonate 27 mEq/L (21-32); Bilirubin Total 0.3 mg/dL (0.2-1.0); Globulin 3.1 g/dL (2.3-3.5); Glomerular Filtration Rate 72 ml/min (=/>90); Glucose Level 134 mg/dL (74-106); Magnesium 2.3 mg/dL (1.6-2.4); Potassium 3.9 mEq/L (3.5-5.1); Sodium Level 142 mEq/L (136-145)
[2024-10-12 10:08] LABS: Bilirubin Direct < 0.2 mg/dL (0-0.2); Bilirubin Indirect, Calculated 0.1 mg/dL (0.2-0.8); Troponin High Sensitivity < 3.0 pg/mL (<58.9)
--- NOTE | 2024-10-12 11:31 | RAD REPORT ---
EXAMINATION: ONE VIEW CHEST XR CLINICAL INDICATION: Female, 79 years old.,weakness TECHNIQUE: Frontal chest projection is submitted. Examination is limited by patient positioning and t echnique. COMPARISON: 10/08/2024 FINDINGS: The lungs are well inflated and clear. Stable changes of COPD. No pneumothorax or sizable effusion. T he heart is normal in size. Mediastinal contours are unremarkable. IMPRESSION: No acute intrathoracic abnormalities.
--- NOTE | 2024-10-12 11:56 | RAD REPORT ---
EXAM: CT Abdomen Angio, CT pelvis angiogram HISTORY: [facility] no melena, weakness Bed Name: 16 COMPARISON: None TECHNIQUE: Multiple contiguous axial images were obtained a CTA of the abdomen and pelvis with contra st per the GI bleeding protocol. Additional delayed imaging of the pelvis was also performed.Sagittal and coronal 3-D MIP reformats were performed. One or more of the following dose re duction techniques were used: Automated exposure control, adjustment of the mA and kV according to patient size, and iterative reconstruction. Unless otherwise specified, incidental findings do not re quire dedicated imaging follow-up. FINDINGS: LOWER LUNGS: No focal infiltrates or masses. PLEURAL SPACE: No pleural effusion or pneumothorax. LIVER: The included aspects are unremarkable. KIDNEYS: Unremarkable. SPLEEN: Unremarkable. PANCREAS: Unremarkable. BOWEL: Extensive distal colonic diverticulosis without evidence of acute diverticulitis. Linear vascu lar structures along the right wall of the lower rectum and anal canal, with questionable contrast blush peripherally along the lumen of the lower rectum. See axial image 111/140. Both the vascular en hancement, and the luminal questionable blush do not persist on the delayed images of the pelvis. RETROPERITONEUM: No lymphadenopathy BONES: Degenerative changes in the spine. DESCENDING THORACIC AORTA: Normal caliber without evidence of dissection or aneurysmal dilatation. ABDOMINAL AORTA: Normal caliber without evidence of dissection or aneurysmal dilatation. Mild to mode rate atherosclerotic plaque burden without significant narrowing CELIAC TRUNK: Patent, with mild tortuosity and narrowing along its proximal segment. SMA: Patent MARELY: Patent RENAL ARTERIES: Bilateral single renal arteries with mild to moderate atherosclerotic calcifications at the right ostium, without significant narrowing. IMPRESSION: No evidence of proximal contrast extravasation to suggest a proximal etiology of GI bleeding. Vascular enhancement along the right wall of the lower rectum and anal canal with questionable lumina l contrast blush versus mucosal enhancement along the lower rectum, favored to represent a small anorectal angiodysplasia or vascular malformation given reported absence of bright red bleeding per r ectum. Extensive sigmoid diverticulosis is no evidence of acute diverticulitis.
--- NOTE | 2024-10-12 12:05 | RAD REPORT ---
EXAM: CT Abdomen Angio, CT pelvis angiogram HISTORY: [facility] no melena, weakness Bed Name: 16 COMPARISON: None TECHNIQUE: Multiple contiguous axial images were obtained a CTA of the abdomen and pelvis with contra st per the GI bleeding protocol. Additional delayed imaging of the pelvis was also performed.Sagittal and coronal 3-D MIP reformats were performed. One or more of the following dose re duction techniques were used: Automated exposure control, adjustment of the mA and kV according to patient size, and iterative reconstruction. Unless otherwise specified, incidental findings do not re quire dedicated imaging follow-up. FINDINGS: LOWER LUNGS: No focal infiltrates or masses. PLEURAL SPACE: No pleural effusion or pneumothorax. LIVER: The included aspects are unremarkable. KIDNEYS: Unremarkable. SPLEEN: Unremarkable. PANCREAS: Unremarkable. BOWEL: Extensive distal colonic diverticulosis without evidence of acute diverticulitis. Linear vascu lar structures along the right wall of the lower rectum and anal canal, with questionable contrast blush peripherally along the lumen of the lower rectum. See axial image 111/140. Both the vascular en hancement, and the luminal questionable blush do not persist on the delayed images of the pelvis. RETROPERITONEUM: No lymphadenopathy BONES: Degenerative changes in the spine. DESCENDING THORACIC AORTA: Normal caliber without evidence of dissection or aneurysmal dilatation. ABDOMINAL AORTA: Normal caliber without evidence of dissection or aneurysmal dilatation. Mild to mode rate atherosclerotic plaque burden without significant narrowing CELIAC TRUNK: Patent, with mild tortuosity and narrowing along its proximal segment. SMA: Patent MARELY: Patent RENAL ARTERIES: Bilateral single renal arteries with mild to moderate atherosclerotic calcifications at the right ostium, without significant narrowing. IMPRESSION: No evidence of proximal contrast extravasation to suggest a proximal etiology of GI bleeding. Vascular enhancement along the right wall of the lower rectum and anal canal with questionable lumina l contrast blush versus mucosal enhancement along the lower rectum, favored to represent a small anorectal angiodysplasia or vascular malformation given reported absence of bright red bleeding per r ectum. Extensive sigmoid diverticulosis is no evidence of acute diverticulitis. THIS REPORT CONTAINS FINDINGS THAT MAY BE CRITICAL TO PATIENT CARE. The findings were verbally commun icated via telephone to Jon Clements on 10/12/2024 11:16 AM.
--- NOTE | 2024-10-12 12:42 | ER ---
Nurse's Notes [facility] Name: Tiara Cheatham Age: 79 yrs Sex: Female : 1945 Arrival Date: 10/12/2024 Time: 08:51 Bed 16 Private MD: Diagnosis: Melena;Symptomatic anemia Presentation: 10/12 09:00 Chief complaint: EMS states: Toned out for generalized weakness, diarrhea. Coronavirus jl7 screen: At this time, the client does not indicate any symptoms associated with coronavirus-19. Ebola Screen: No symptoms or risks identified at this time. Initial Sepsis Screen: Does the patient meet any 2 criteria? No. Patient's initial sepsis screen is negative. Does the patient have a suspected source of infection? No. Patient's initial sepsis screen is negative. Risk Assessment: Do you want to hurt yourself or someone else? Patient reports no desire to harm self or others. Onset of symptoms is unknown. Care prior to arrival: None. 09:00 Method Of Arrival: EMS: [facility] jl7 09:00 Acuity: TROY 3 jl7 Triage Assessment: 09:00 General: Appears in no apparent distress. uncomfortable, Behavior is calm, cooperative, jl7 appropriate for age. Pain: Denies pain. Neuro: Carr Agitation-Sedation Scale (RASS): 0 - Alert and Calm Level of Consciousness is awake, alert, obeys commands, Oriented to person, place, time, situation. Cardiovascular: Patient's skin is warm and dry. Respiratory: Airway is patent Respiratory effort is even, unlabored, Respiratory pattern is regular, symmetrical. GI: Abdomen is round Reports diarrhea. Derm: Skin is dry, Skin is pale, Skin temperature is warm. Historical: - Allergies: 09:01 PENICILLINS; jl7 - PMHx: 09:01 neuropathy (Unknown); RLS (Unknown); jl7 - PSHx: 09:01 Total abdominal hysterectomy; jl7 - Immunization history:: Adult Immunizations unknown. - Infectious Disease History:: Denies. - Family history:: not pertinent. - Social history:: Smoking status: unknown. Screenin:35 [facility] ED Fall Risk Assessment (Adult) History of falling in the last 3 months, jl7 including since admission No falls in past 3 months (0 pts) Confusion or Disorientation No (0 pts) Intoxicated or Sedated No (0 pts) Impaired Gait No (0 pts) Mobility Assist Device Used No (0 pt) Altered Elimination No (0 pt) Score/Fall Risk Level 0 - 2 = Low Risk Oriented to surroundings, Maintained a safe environment. Abuse screen: Denies threats or abuse. Denies injuries from another. Nutritional screening: No deficits noted. Tuberculosis screening: No symptoms or risk factors identified. Assessment: 10:05 General: Appears ill, slender, well groomed, well developed, Behavior is calm, me1 cooperative, appropriate for age, Reports Toned out for generalized weakness, diarrhea. Pain: Denies pain. Neuro: Level of Consciousness is awake, alert, obeys commands, Oriented to person, place, time, situation, Appropriate for age. Cardiovascular: Patient's skin is warm and dry. Respiratory: Airway is patent Respiratory effort is even, unlabored, Respiratory pattern is regular, symmetrical. GI: Reports cramping, diarrhea. : No signs and/or symptoms were reported regarding the genitourinary system. EENT: No signs and/or symptoms were reported regarding the EENT system. Derm: Skin is intact, is healthy with good turgor, Skin is pink, warm \T\ dry. Musculoskeletal: No signs and/or symptoms reported regarding the musculoskeletal system. 13:15 Reassessment: Report given to DAREN Mcallister at [facility]. me1 Vital Signs: 09:00 BP 119 / 53; Pulse 79; Resp 15; Temp 97; Pulse Ox 100% ; jl7 10:00 BP 110 / 60; Pulse 66; Resp 14; Pulse Ox 100% ; me1 11:00 BP 105 / 63; Pulse 56; Resp 12; Pulse Ox 100% ; me1 12:00 BP 131 / 55; Pulse 59; Resp 14; Pulse Ox 100% ; me1 13:00 BP 122 / 68; Pulse 60; Resp 18; Pulse Ox 100% ; me1 14:00 BP 137 / 53; Pulse 56; Resp 15; Pulse Ox 97% ; me1 15:00 BP 133 / 59; Pulse 59; Resp 15; Pulse Ox 95% ; me1 15:47 BP 106 / 58; Pulse 56; Resp 19; Temp 98.2; Pulse Ox 99% on R/A; me1 ED Course: 08:56 Patient arrived in ED. eb 08:59 Jon Clements MD is Attending Physician. rt 09:00 Jaquelin Emmanuel, DAREN is Primary Nurse. jl7 09:01 Triage completed. jl7 09:01 Arm band placed on right wrist. jl7 09:09 Patient has correct armband on for positive identification. Provided Education on: use jl7 of call vyas. Client placed on continuous cardiac and pulse oximetry monitoring. NIBP monitoring applied. pulling unit operator on. Pulse ox on. 09:09 Initial lab(s) drawn, by me, sent to lab. EKG done, by ED staff, reviewed by Jon Clements MD. Inserted saline lock: 18 gauge in right antecubital area, using aseptic technique. Blood collected. Flushed with 10 mL NS. 09:25 XRAY Chest (1 view) In Process Unspecified. EDMS 10:05 No provider procedures requiring assistance completed. me1 10:07 CT Abdomen - Angio In Process Unspecified. EDMS 10:07 Pelvis Angio In Process Unspecified. EDMS 12:20 initiated a transfer with David from the [facility] Transfer [place]. eb 13:04 administrative approval given by David Vaughn/ patient has been accepted to [facility] room 1010/ Joe Landaverde has accepted the patient in transfer/ report to be called to [phone]. 15:47 Patient transferred, IV remains in place. me1 Administered Medications: 09:20 Drug: NS 0.9% IV 1000 ml IV at 1 bolus Per protocol; to be given as a bolus over 60 jl7 minutes Route: IV; Rate: 1 bolus; Site: right antecubital; 12:17 Follow up: Response: No adverse reaction; IV Status: Completed infusion; IV Intake: me1 1000ml 09:20 Drug: Pantoprazole IVP 80 mg IVP once Route: IVP; Site: right antecubital; jl7 11:24 Follow up: Response: No adverse reaction me1 14:34 Drug: Gabapentin PO 600 mg PO once Route: PO; me1 14:45 Follow up: Response: No adverse reaction me1 14:53 Drug: Requip PO 3 mg PO once Route: PO; me1 15:46 Follow up: Response: No adverse reaction me1 Medication: 09:35 VIS not applicable for this client. jl7 Intake: 12:17 IV: 1000ml; Total: 1000ml. me1 Outcome: 12:41 ER care complete, transfer ordered by . rt 15:47 Transferred by ground EMS to [facility], Transfer form completed. me1 Note: Report was called to DAREN Mcallister at [facility] in [facility] 15:47 Condition: stable 15:47 Instructed on the need for transfer, 15:51 Patient left the ED. me1 Signatures: Dispatcher [employer] Jaquelin Kumar RN RN jl7 Vee Soliz Ryan, MD MD rt Kaitlin Trejo RN RN me1 Corrections: (The following items were deleted from the chart) 11:23 09:00 Chief complaint: EMS states: Toned out for generalized weakness, diarrhea jl7 me1
--- NOTE | 2024-10-12 12:42 | EDPHYS ---
Physician Documentation [facility] Name: Tiara Cheatham Age: 79 yrs Sex: Female : 1945 Arrival Date: 10/12/2024 Time: 08:51 Bed 16 Private MD: ED Physician Jon Clements HPI: 10/12 09:40 This 79 yrs old Female presents to ER via EMS with complaints of General Weakness. rt 09:40 Patient was seen in the ED a few days ago, diagnosed with microcytic anemia of 8.6. She rt states that she has had worsening generalized weakness, dizziness since then. States that she has had black watery stools starting after discharge. Reports nausea, vomiting. Denies abdominal pain, the barnes complaints, symptoms are moderate severity, no other aggravating or alleviating factors.. Historical: - Allergies: 09:01 PENICILLINS; jl7 - PMHx: 09:01 neuropathy (Unknown); RLS (Unknown); jl7 - PSHx: 09:01 Total abdominal hysterectomy; jl7 - Immunization history:: Adult Immunizations unknown. - Infectious Disease History:: Denies. - Family history:: not pertinent. - Social history:: Smoking status: unknown. ROS: 09:40 Cardiovascular: Negative for chest pain, palpitations, and edema, Respiratory: Negative rt for shortness of breath, cough, wheezing, and pleuritic chest pain, MS/Extremity: Negative for injury and deformity, Skin: Negative for injury, rash, and discoloration, 09:40 Constitutional: Positive for fatigue, malaise, 09:40 Abdomen/GI: Positive for Melena, negative for abdominal pain, 09:40 Neuro: Positive for dizziness, weakness, Exam: 09:40 Constitutional: This is a well developed, well nourished patient who is awake, alert, rt and in no acute distress. Head/Face: Normocephalic, atraumatic. Chest/axilla: Normal chest wall appearance and motion. Nontender with no deformity. No lesions are appreciated. Cardiovascular: Regular rate and rhythm with a normal S1 and S2. No gallops, murmurs, or rubs. Normal PMI, no JVD. No pulse deficits. Respiratory: Lungs have equal breath sounds bilaterally, clear to auscultation and percussion. No rales, rhonchi or wheezes noted. No increased work of breathing, no retractions or nasal flaring. Abdomen/GI: Soft, non-tender, with normal bowel sounds. No distension or tympany. No guarding or rebound. No evidence of tenderness throughout. Skin: Warm, dry with normal turgor. Normal color with no rashes, no lesions, and no evidence of cellulitis. MS/ Extremity: Pulses equal, no cyanosis. Neurovascular intact. Full, normal range of motion. Neuro: Awake and alert, GCS 15, oriented to person, place, time, and situation. Cranial nerves II-XII grossly intact. Motor strength 5/5 in all extremities. Sensory grossly intact. Cerebellar exam normal. Normal gait. 09:40 ECG was reviewed by the Attending Physician. Vital Signs: 09:00 BP 119 / 53; Pulse 79; Resp 15; Temp 97; Pulse Ox 100% ; jl7 10:00 BP 110 / 60; Pulse 66; Resp 14; Pulse Ox 100% ; me1 11:00 BP 105 / 63; Pulse 56; Resp 12; Pulse Ox 100% ; me1 12:00 BP 131 / 55; Pulse 59; Resp 14; Pulse Ox 100% ; me1 13:00 BP 122 / 68; Pulse 60; Resp 18; Pulse Ox 100% ; me1 14:00 BP 137 / 53; Pulse 56; Resp 15; Pulse Ox 97% ; me1 15:00 BP 133 / 59; Pulse 59; Resp 15; Pulse Ox 95% ; me1 15:47 BP 106 / 58; Pulse 56; Resp 19; Temp 98.2; Pulse Ox 99% on R/A; me1 MDM: 08:59 Medical Screening Exam initiated rt 16:16 Differential Diagnosis GI bleed, symptomatic anemia. Data reviewed: vital signs, nurses rt notes, lab test result(s), EKG, radiologic studies. Consideration of Admission/Observation Patient requires transfer for GI coverage. Management of patient was discussed with the following: Hospitalist: Discussed with accepting hospitalist at [facility]. I considered the following discharge prescriptions or medication management in the emergency department Medications were administered in the Emergency Department. See MAR. Independent interpretation of the following test(s) in the Emergency Department CT Scan: My interpretation is No bowel obstruction syndrome interpretation of CT scan images. Care significantly affected by the following chronic conditions: RLS. Counseling: I had a detailed discussion with the patient and/or guardian regarding the historical points, exam findings, and any diagnostic results supporting the discharge/admit diagnosis, lab results, radiology results, the need to transfer to another facility. Response to treatment: There is no appreciated change of the patient's symptoms at this time. 10/12 09: Order name: Basic Metabolic Panel; Complete Time: 10:23 rt 10/12 09:01 Order name: CBC with Diff; Complete Time: 10:23 rt 10/12 09:01 Order name: LFT's; Complete Time: 10:23 rt 10/12 09:01 Order name: Magnesium; Complete Time: 10:23 rt 10/12 09:01 Order name: Troponin HS; Complete Time: 10:23 rt 10/12 09:01 Order name: Type And Screen; Complete Time: 10:32 rt 10/12 10:40 Order name: ABO/RH no charge; Complete Time: 10:41 EDMS 10/12 09:01 Order name: XRAY Chest (1 view); Complete Time: 12:04 rt 10/12 09:01 Order name: CT Abdomen - Angio; Complete Time: 12:04 rt 10/12 09:09 Order name: Pelvis Angio; Complete Time: 12:08 EDMS 10/12 09:01 Order name: Cardiac monitoring; Complete Time: :31 rt 10/12 09:01 Order name: EKG - Nurse/Tech; Complete Time: : rt 10/12 09:01 Order name: IV Saline Lock; Complete Time: :31 rt 10/12 09:01 Order name: Labs collected and sent; Complete Time: : rt 10/12 09:01 Order name: O2 Per Protocol; Complete Time: : rt 10/12 09:01 Order name: O2 Sat Monitoring; Complete Time: : rt EC:40 Rate is 65 beats/min. Rhythm is regular, Normal Sinus Rhythm with No ectopy. QRS [place] rt is Normal. IN interval is normal. QRS interval is normal. QT interval is normal. No Q waves. No ST changes noted. Interpreted by me. Administered Medications: 09:20 Drug: NS 0.9% IV 1000 ml IV at 1 bolus Per protocol; to be given as a bolus over 60 jl7 minutes Route: IV; Rate: 1 bolus; Site: right antecubital; 12:17 Follow up: Response: No adverse reaction; IV Status: Completed infusion; IV Intake: me1 1000ml 09:20 Drug: Pantoprazole IVP 80 mg IVP once Route: IVP; Site: right antecubital; jl7 11:24 Follow up: Response: No adverse reaction me1 14:34 Drug: Gabapentin PO 600 mg PO once Route: PO; me1 14:45 Follow up: Response: No adverse reaction me1 14:53 Drug: Requip PO 3 mg PO once Route: PO; me1 15:46 Follow up: Response: No adverse reaction me1 Disposition Summary: 10/12/24 12:41 Transfer Ordered Notes: Transfer Location: [facility] rt Reason: Higher level of care rt Condition: Stable rt Problem: new rt Symptoms: are unchanged rt Accepting Physician: (10/12/24 15:51) me1 Diagnosis - Melena rt - Symptomatic anemia rt Forms: - Medication Reconciliation Form rt - SBAR form rt Signatures: Dispatcher [employer] EDAriana Lozano RN RN iw Jaquelin Emmanuel RN RN jl7 Jon Clements MD MD rt Kaitlin Trejo RN RN me1 Corrections: (The following items were deleted from the chart) 09:02 09:02 BASIC METABOLIC PANEL+C.LAB.BRZ ordered. EDMS EDMS 09:02 09:02 CBC+H.LAB.BRZ ordered. EDMS EDMS 09:02 09:02 HEPATIC FUNCTION+C.LAB.BRZ ordered. EDMS EDMS 09:02 09:02 MAGNESIUM+C.LAB.BRZ ordered. EDMS EDMS 09:02 09:02 Troponin High Sensitivity+C.LAB.BRZ ordered. EDMS EDMS 09:02 09:02 TYPE AND SCREEN+BB.LAB.BRZ ordered. EDMS EDMS 09:02 09:02 Chest Single View+RAD.RAD.BRZ ordered. EDMS EDMS 09:02 09:02 Abdomen Angio+CT.RAD.BRZ ordered. EDMS EDMS 15:51 12:41 rt me1
[2024-10-12] MEDS ORDERED: GABAPENTIN 300 MG CAP ONE (14:29)
[2024-10-12] MEDS: ROPINIROLE HCL 1 MG TAB PO ONE (14:33)
[2024-10-12 16:18] VITALS: BP 106/58; TEMP 98.2; O2SAT 99
--- NOTE | 2024-10-15 16:51 | EKG ---
Test Date: 2024-10-12 Test Time: 09:14:12 Hand Tool Filer: RAVI MEASUREMENT RESULTS: Intervals: Rate: 65 NE: 196 QRSD: 74 QT: 416 QTc: 432 [place]: P: 56 NE: 196 QRS: -9 T: -39 INTERPRETIVE STATEMENTS: Normal sinus rhythm with sinus arrhythmia Nonspecific T wave abnormality Abnormal ECG Compared to ECG 10/08/2024 13:27:24 First degree AV block no longer present T-wave abnormality still present Electronically Signed On 10-15-24 16:48:30 CDT by Cheng Brewster
== END 2024-10-12 15:51 | disposition short-term general hospital (02) ==
LOC: ER 08:51
DX: D64.9 Anemia, unspecified (principal)
CPT/HCPCS: 96361; 85025; 80048; 36415; 86900; 83735; 86850; 86901; 80076; 84484; 72191; 74175; 71045; 96374; 99285; Q9967; J2470 ×2; J7030; 93005